=== PATIENT | female | born 1975 | race Caucasian/White ===

== ENCOUNTER 2019-03-01 18:03 | Outpatient (REF) | payer BC, SELFPAY ==
[2019-03-01 20:21] LABS: HCT 41.3 % (36.0-46.0); HGB 13.3 g/dL (12.0-15.5); Mean Corp. HGB Concentration 32.2 g/dL (32.0-36.0); Mean Corpuscular Hemoglobin 32.5 pg (27.0-33.0); Mean Platelet Volume 11.7 fL (8.0-11.0); Platelet Count 215 x1000/uL (130-400); RBC 4.09 m/cumm (4.00-5.20); RBC Distribution Width 12.9 % (11.7-14.6); White Blood Cell Count 6.25 k/cumm (4.4-10.8)
[2019-03-01 20:34] LABS: Iron 72 ug/dL (50-175); Total Iron Binding Capacity 251 ug/dL (250-450); Transferrin Sat 29 % (15-50)
[2019-03-01 20:35] LABS: ALT 21 U/L (14-59); AST 14 U/L (15-37); Albumin 4.4 g/dL (3.4-5.0); Alkaline Phosphatase 109 U/L (46-116); Anion Gap 10.9 mmol/L (3-11); BUN 20 mg/dL (7-18); Bilirubin, Total 0.4 mg/dL (0.2-1.0); CO2 26.1 mmol/L (21.0-32.0); CREATININE 0.75 mg/dL (0.55-1.02); Calcium 8.7 mg/dL (8.5-10.1); Chloride 106 mmol/L (98-107); Creatine Kinase 129 U/L (26-192); Glucose 86 mg/dL (70-100); Sodium 143 mmol/L (136-145); Total Protein 7.1 g/dL (6.4-8.2)
[2019-03-01 21:01] LABS: ESR 10 mm/hr (0-20)
== END 2019-03-01 18:23 ==
LOC: NCHCN 18:03
PROVIDERS: PCP Internal Medicine; Visit Provider Internal Medicine
DX: K76.0 Fatty (change of) liver, not elsewhere classified (principal); D50.9 Iron deficiency anemia, unspecified; M79.7 Fibromyalgia
CPT/HCPCS: 80053; 82550; 85027; 85652; 83540; 83550

== ENCOUNTER 2019-07-07 12:39 | Outpatient (REF) | payer BC, SELFPAY ==
[2019-07-07 18:26] LABS: Microalb ug/mg Crea 29.4 ug/mg Cr
== END 2019-07-07 12:59 ==
LOC: NCHCN 12:39
PROVIDERS: PCP Internal Medicine; Visit Provider Internal Medicine
DX: E11.9 Type 2 diabetes mellitus without complications (principal)
CPT/HCPCS: 82043; 82570

== ENCOUNTER 2019-08-15 13:46 | Outpatient (CLI) | payer BC, SELFPAY ==
[2019-08-21 11:45] LABS: COVID-19 RT-PCR Result Not Detected (NotDetected)
== END 2019-08-15 14:06 ==
PROVIDERS: PCP Internal Medicine; Visit Provider Internal Medicine
DX: Z20.828 Contact with and (suspected) exposure to other viral communicable diseases (principal); Z11.59 Encounter for screening for other viral diseases; R50.9 Fever, unspecified
CPT/HCPCS: 87449; U0003

== ENCOUNTER 2019-12-28 16:27 | Outpatient (REF) | payer BC, SELFPAY ==
[2019-12-28 19:54] LABS: HCT 43.6 % (36.0-46.0); HGB 13.9 g/dL (11.2-15.7); MCH 32.6 pg (27.0-33.0); MCHC 31.9 % (32.0-36.0); MCV 102.1 fL (80-95); MPV 11.7 fL (8.0-11.0); Platelet Count 226 10^3/uL (130-400); RBC 4.27 10^6/uL (3.93-5.22); RDW 12.7 % (11.7-14.6); RDW-SD 47.7 fL
[2019-12-28 19:57] LABS: Anion Gap 8.2 mmol/L (3-11); BUN 18 mg/dL (7-18); CO2 26.8 mmol/L (21.0-32.0); CREATININE 0.69 mg/dL (0.55-1.02); Calcium 8.9 mg/dL (8.5-10.1); Chloride 107 mmol/L (98-107); Glucose 92 mg/dL (74-106); Potassium 4.5 mmol/L (3.5-5.1); Sodium 142 mmol/L (136-145)
[2019-12-28 20:19] LABS: Iron 109 ug/dL (50-170); Total Iron Binding Capacity 293 ug/dL (250-450); Transferrin Sat 37 % (15-50)
== END 2019-12-28 16:47 ==
LOC: NCHCN 16:27
PROVIDERS: PCP Internal Medicine; Visit Provider Internal Medicine
DX: E11.9 Type 2 diabetes mellitus without complications (principal); D50.9 Iron deficiency anemia, unspecified
CPT/HCPCS: 80048; 85027; 83540; 83550

== ENCOUNTER 2020-09-04 09:47 | Outpatient (REF) | payer BC, SELFPAY ==
[2020-09-05 03:27] LABS: COVID-19 RT-PCR UVMMC Result Positive (Negative)
== END 2020-09-04 09:48 | disposition home or self-care (01) ==
LOC: NCHCN 09:47
PROVIDERS: PCP Internal Medicine; Visit Provider Internal Medicine
DX: Z20.822 Contact with and (suspected) exposure to COVID-19 (principal)
CPT/HCPCS: U0003

== ENCOUNTER 2020-09-06 05:45 | Outpatient (CLI) | payer BC, SELFPAY ==
[2020-09-06 13:37] VITALS: BP 117/82; PULSE 90; RESP 18; TEMP 37.8; O2SAT 96
[2020-09-06] MEDS: Normal Saline Flush 10 ML SYR IVP (13:42)
[2020-09-06] MEDS: Normal Saline 500 ML 30 ML IV (13:43)
[2020-09-06 13:46] VITALS: BP 111/76; PULSE 81; RESP 18; TEMP 36.9; O2SAT 97
[2020-09-06 14:25] VITALS: BP 110/76; PULSE 76; RESP 20; TEMP 37.4; O2SAT 93
[2020-09-06 14:55] VITALS: BP 109/68; PULSE 78; RESP 20; TEMP 37.5; O2SAT 95
[2020-09-06 15:26] VITALS: BP 110/76; PULSE 73; RESP 16; TEMP 36.1; O2SAT 96
== END 2020-09-06 05:46 | disposition home or self-care (01) ==
LOC: INF 05:48
PROVIDERS: PCP Internal Medicine; Visit Provider Family Medicine
DX: U07.1 COVID-19 (principal)
CPT/HCPCS: 96365

== ENCOUNTER 2021-10-10 17:38 | Outpatient (REF) | payer BC, SELFPAY ==
[2021-10-10 18:31] LABS: HCT 41.5 % (36.0-46.0); HGB 13.4 g/dL (11.2-15.7); MCH 32.3 pg (27.0-33.0); MCHC 32.3 % (32.0-36.0); MCV 100 fL (80-95); MPV 11.4 fL (8.0-11.0); Platelet Count 207 10^3/uL (130-400); RBC 4.15 10^6/uL (3.93-5.22); RDW 12.6 % (11.7-14.6); RDW-SD 46.3 fL; WBC 8.15 10^3/uL (4.4-10.8)
[2021-10-10 19:25] LABS: ALT 31 U/L (14-59); AST 17 U/L (15-37); Albumin 4.2 g/dL (3.4-5.0); Alkaline Phosphatase 106 U/L (46-116); Anion Gap 10.5 mmol/L (3-11); BUN 22 mg/dL (7-18); Bilirubin, Total 0.2 mg/dL (0.2-1.0); CO2 25.5 mmol/L (21.0-32.0); CREATININE 0.9 mg/dL (0.55-1.02); Calcium 8.4 mg/dL (8.5-10.1); Chloride 107 mmol/L (98-107); Glucose 85 mg/dL (74-106); Potassium 4.3 mmol/L (3.5-5.1); Sodium 143 mmol/L (136-145); TSH 0.85 uIU/mL (0.36-3.74); Total Protein 7.2 g/dL (6.4-8.2)
== END 2021-10-10 17:39 | disposition home or self-care (01) ==
LOC: NCHCN 17:38
PROVIDERS: PCP Internal Medicine; Visit Provider Internal Medicine
DX: R73.03 Prediabetes (principal); K76.0 Fatty (change of) liver, not elsewhere classified
CPT/HCPCS: 80053; 85027; 84443

== ENCOUNTER 2022-10-23 18:08 | Outpatient (REF) | payer BC, SELFPAY ==
[2022-10-23 19:36] LABS: ALT 24 U/L (14-59); AST 21 U/L (15-37); Alkaline Phosphatase 115 U/L (46-116); Anion Gap 9.1 mmol/L (3-11); BUN 17 mg/dL (7-18); Bilirubin, Total 0.2 mg/dL (0.2-1.0); CO2 24.9 mmol/L (21.0-32.0); CREATININE 0.8 mg/dL (0.55-1.02); Calcium 8.9 mg/dL (8.5-10.1); Calculated LDL 67 mg/dL (<100); Chloride 106 mmol/L (98-107); Cholesterol 166 mg/dL (<200); Glucose 87 mg/dL (74-106); HDL Cholesterol 51 mg/dL (40-60); Potassium 3.8 mmol/L (3.5-5.1); Sodium 140 mmol/L (136-145); TSH 1.26 uIU/mL (0.36-3.74); Total Protein 7.5 g/dL (6.4-8.2); Triglyceride 242 mg/dL (<150)
[2022-10-23 19:47] LABS: Creatine Kinase 134 U/L (26-192)
[2022-10-23 19:55] LABS: HCT 40.8 % (36.0-46.0); HGB 13.5 g/dL (11.2-15.7); MCHC 33.1 % (32.0-36.0); MCV 97 fL (80-95); MPV 12.3 fL (8.0-11.0); Platelet Count 208 10^3/uL (130-400); RBC 4.22 10^6/uL (3.93-5.22); RDW-SD 46.6 fL; WBC 7.47 10^3/uL (4.4-10.8)
== END 2022-10-23 18:09 | disposition home or self-care (01) ==
LOC: NCHCN 18:08
PROVIDERS: PCP Internal Medicine; Visit Provider Internal Medicine
DX: Z00.00 Encounter for general adult medical examination without abnormal findings (principal); K91.2 Postsurgical malabsorption, not elsewhere classified; E66.8 Other obesity; R42 Dizziness and giddiness; D50.9 Iron deficiency anemia, unspecified; E11.9 Type 2 diabetes mellitus without complications
CPT/HCPCS: 80053; 80061; 82550; 85027; 84443

== ENCOUNTER 2023-05-13 22:29 | Outpatient (REF) | payer BC, SELFPAY ==
[2023-05-13 19:25] LABS: Abs Immature Grans 0.02 10^3/uL (0.0-0.06); Absolute Basophil Count 0.05 10^3/uL (0.0-0.2); Absolute Eosinophil Count 0.23 10^3/uL (0.0-0.7); Absolute Lymphocyte Count 1.65 10^3/uL (1.2-3.4); Absolute Monocyte Count 0.58 10^3/uL (0.1-0.8); Absolute Neutrophil Count 3.95 10^3/uL (1.2-6.7); Basophils % 0.8; Eosinophils % 3.5; HCT 40.1 % (36.0-46.0); HGB 13.5 g/dL (11.2-15.7); Immature Grans % 0.3; Lymphocytes % 25.5; MCH 32.5 pg (27.0-33.0); MCHC 33.7 % (32.0-36.0); MCV 96 fL (80-95); MPV 11.5 fL (8.0-11.0); Neutrophils % 60.9; Platelet Count 228 10^3/uL (130-400); RBC 4.16 10^6/uL (3.93-5.22); RDW 12.4 % (11.7-14.6); RDW-SD 43.8 fL; WBC 6.48 10^3/uL (4.4-10.8)
[2023-05-13 19:45] LABS: ALT 24 U/L (14-59); AST 19 U/L (15-37); Albumin 3.9 g/dL (3.4-5.0); Alkaline Phosphatase 110 U/L (46-116); Anion Gap 7.7 mmol/L (3-11); BUN 20 mg/dL (7-18); Bilirubin, Total 0.2 mg/dL (0.2-1.0); CO2 25.3 mmol/L (21.0-32.0); CREATININE 0.8 mg/dL (0.55-1.02); Calcium 9.3 mg/dL (8.5-10.1); Chloride 105 mmol/L (98-107); Glucose 96 mg/dL (74-106); Magnesium 2.3 mg/dL (1.8-2.4); Potassium 3.9 mmol/L (3.5-5.1); Sodium 138 mmol/L (136-145); Total Protein 7.6 g/dL (6.4-8.2)
--- OUTSIDE RECORDS SUMMARY | 2023-05-13 22:34 | XMS_ITS | Continuity of Care Document ---
Author Name Unknown Organization [facility] Address [address] [place] [address] Care Team Providers Care Jet Aircraft Servicer Name Role Phone Primeau Pritesh SETH Primary Care Physician Encounter [facility] Date(s): 04/27/22 - 04/27/[address] [phone] Discharge Disposition: Home or Self Care Attending Physician: César Patel MD Admitting Physician: César Patel MD Referring Physician: César Patel MD Allergies, Adverse Reactions, Alerts Substance Reaction Severity Status LATEX Unknown Active haloperidol Urticaria Unknown Active benztropine Urticaria Unknown Active iodine topical Urticaria Unknown Active Assessment and Plan Future Appointments Immunizations Given and Recorded Vaccine Date Status Refusal Reason influenza virus vaccine, inactivated 03/03/22 Give n SARS-CoV-2 (COVID-19) mRNA-1273 vaccine 1 10/10/21 Recorded [id number]-1273 (booster only) vacc 03/30/21 Recorded influenza virus vaccine, live 02/25/21 Recorded influenza virus vaccine, live 06/02/19 Recorded SARS-CoV-2 (COVID-19) Ad26 vaccine 10/16/20 Record ed 1Result Comment: 2nd booster Medications ARIPiprazole 15 mg oral tablet 15 mg = 1 tab, Oral, Daily Start Date: 12/15/21 Status: Ordered ciclopirox 0.77% topical cream See Instructions, APPLY TO THE AFFECTED AND SURROUNDING AREAS OF SKIN BY TOPICAL ROUTE 2 TIMES PER DAY IN THE MORNING AND EVENING, 0 Refill(s) Start Date: 10/15/21 Status: Ordered Citracal + D 0 Refill(s) Start Date: 04/17/22 Status: Ordered Colace 100 mg oral capsule 200 mg = 2 cap, Oral, Daily, 0 Refill(s) Start Date: 10/15/21 Status: Ordered erythromycin 2% topical gel 1 harleen, Topical, Daily Start Date: 12/15/21 Status: Ordered Flovent HFA 110 mcg/inh inhalation aerosol 2 puffs, Inhale, BID, 0 Refill(s) Start Date: 10/15/21 Status: Ordered FLUoxetine (Eqv-Prozac) 20 mg oral tablet 1 tab, Oral, Daily, 60 EA, TAKE 1 TABLETS BY MOUTH DAILY FOR 2 WEEKS THEN TAKE 2 TABLETS DAILY THERAFTER, 0 Refill(s) Start Date: 02/25/22 Status: Ordered gabapentin 600 mg oral tablet See Instructions, take 3 tablets in the morning, 2 tablets at noon, and 2 tablets at night, 0 Refill(s) Start Date: 10/15/21 Status: Ordered ibuprofen 600 mg oral tablet 600 mg = 1 tab, Oral, every 8 hr, as needed Start Date: 12/15/21 Status: Ordered GERARDO pap pressure change GERARDO pap pressure change, increase auto CPAP 11-22 cmH2O NPI # [id number], Supply, See instructions, # 1 EA, 0 Refill(s) Start Date: 10/16/21 Status: Ordered levalbuterol 45 mcg/inh inhalation aerosol 2 puffs, Inhale, every 6 hr, PRN other (see comment), as needed Start Date: 10/15/21 Status: Ordered magnesium oxide 400 mg (241.3 mg elemental magnesium) oral tablet 400 mg = 1 tab, Oral, Daily, 0 Refill(s) Start Date: 10/15/21 Status: Ordered melatonin 3 mg oral tablet 3 mg = 1 tab, Oral, every day at bedtime, PRN as needed for insomnia, # 60 tab, 0 Refill(s) Start Date: 04/17/22 Status: Ordered Metamucil 0 Refill(s) Start Date: 04/17/22 Status: Ordered Mirena 52 mg intrauteral device Intrauteral, 0 Refill(s) Start Date: 10/15/21 Status: Ordered mirtazapine 15 mg oral tablet Start Date: 10/15/21 Status: Ordered naltrexone 50 mg oral tablet 50 mg = 1 tab, Oral, Daily Start Date: 12/15/21 Status: Ordered pramipexole 1 mg oral tablet 1 mg = 1 tab, Oral, every night at bedtime Start Date: 10/15/21 Status: Ordered prazosin 2 mg oral capsule 2 mg = 1 cap, Oral, every night at bedtime Start Date: 12/15/21 Status: Ordered ProAir HFA 90 mcg/inh inhalation aerosol 2 puffs, Inhale, every 4 hr, PRN other (see comment), as needed, 0 Refill(s) Start Date: 10/15/21 Status: Ordered Senna 8.6 mg oral tablet 34.4 mg 4 tab, Oral, Daily, PRN as needed for constipation Start Date: 12/15/21 Status: Ordered tamsulosin 0.4 mg oral capsule 0.4 mg = 1 cap, Oral, BID, 0 Refill(s) Start Date: 10/15/21 Status: Ordered Problem List Condition Confirmation Course Effective Dates Status H ealth Status Informant Acquired pes planus of right foot Confirmed Active Anal fissure Confirmed Active Arthralgia of the ankle and/or foot Confirmed Active Asthma Confirmed Active Bipolar disorder Confirmed Active Depressive disorder Confirmed Active Difficulty passing urine Confirmed Active Intermenstrual bleeding - irregular Confirmed Active Irregular periods Confirmed Active IUCD status Confirmed Active Obstructive sleep apnea syndrome Confirmed Active Pain in right foot Confirmed Active Pain of breast Confirmed Active Retention of urine Confirmed Active Snoring Confirmed Active Urinary incontinence Confirmed Active Procedures Procedure Date Related Diagnosis Body Site Status PAP test date 1 08/14/15 Completed Tubal ligation 05/30/03 Completed Cholecystectomy 2 05/09/97 [facility] ed Back surgery Completed Biopsy of liver 3 [facility] ed Gastric bypass 4 Complete d pap nl, hpv neg, next pap due 07/2020 2Laparoscopic 3several 00130, 07/2002 Results Laboratory List Name Date ABO/Rh 04/27/22 Antibody Screen Gel 04/27/22 Automated Diff 04/27/22 CBC w/ Diff 04/27/22 Most recent to oldest [Reference Range]: 1 WBC [5.0-10.0 x10^3/mcL] 5.0 x10^3/mcL (04/27/22 8:51 AM) RBC [4.1-5.3 x10^6/mcL] 4.0 x10^6/mcL *LOW* (04/27/22 8:51 AM) Neutro Auto [40.0-75.0 %] 61.2 % (04/27/22 8:51 AM) Lymph Auto [20.0-50.0 %] 28.6 % (04/27/22 8:51 AM) Piatt Auto [2.0-15.0 %] 7.6 % (04/27/22 8:51 AM) Basophil Auto [0.0-1.0 %] 0.6 % (04/27/22 8:51 AM) ABO/Rh Type O POS *Unknown* (04/27/22 8:51 AM) MCV [80.0-96.0] 99.5 *HI* (04/27/22 8:51 AM) MCHC [31.0-35.0 g/dL] 32.5 g/dL (04/27/22 8:51 AM) Hct [37.0-47.0 %] 40.3 % (04/27/22 8:51 AM) MCH [26.0-32.0 pg] 32.3 pg *HI* (04/27/22 8:51 AM) Neutro Absolute 3.1 x10^3/mcL *NA* (04/27/22 8:51 AM) Hgb [12.0-16.0 g/dL] 13.1 g/dL (04/27/22 8:51 AM) Platelets [130-450 x10^3/mcL] 168 x10^3/ mcL (04/27/22 8:51 AM) RDW-CV [11.7-17.0 %] 12.9 % (04/27/22 8:51 AM) Imm Gran Auto [0.0-0.9 %] 0.2 % (04/27/22 8:51 AM) Antibody Screen Gel Negative ABSC (04/27/22 8:51 AM) Eos, Auto [1.0-6.0 %] 1.8 % (04/27/22 8:51 AM) Social History Social History Type Response Tobacco Never tobacco user T obacco Use:. Sex Female Patient Care team information Personnel Name: Remedios BUNCH, Pritesh Washington MD Address: Address: [address] [address]
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
--- OUTSIDE RECORDS SUMMARY | 2023-05-13 22:34 | XMS_ITS | Continuity of Care Document ---
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 Name Role Phone Primeau IPHCPritesh Primary Care Physician [facility]counter [facility] [id number] Date(s): 04/14/22 - 04/14/[address] [address] Discharge Disposition: Home or Self Care Attending Physician: César Patel MD Admitting Physician: César Patel MD Allergies, Adverse Reactions, Alerts Substance Reaction Severity Status LATEX Unknown Active haloperidol Urticaria Unknown Active benztropine Urticaria Unknown Active iodine topical Urticaria Unknown Active Assessment and Plan Future Appointments Diagnostic Tests Pending * PAP Test [facility] 04/14/22 Immunizations Given and Recorded Vaccine Date Status Refusal Reason influenza virus vaccine, inactivated 03/03/22 Give n SARS-CoV-2 (COVID-19) mRNA-1273 vaccine 1 10/10/21 Recorded [id number] (booster only) vacc 03/30/21 Recorded influenza virus [...] 0 Refill(s) Start Date: 10/15/21 Status: Ordered Colace 100 mg oral capsule [...] pressure change, increase auto CPAP 11-22 cmH2O [facility] # [id number], Supply, See instructions, # 1 EA, 0 Refill(s) Start Date: 10/16/21 Status: Ordered levalbuterol 45 mcg/inh inhalation aerosol 2 puffs, Inhale, every 6 hr, PRN other (see comment), as needed Start Date: 10/15/21 Status: Ordered magnesium oxide 400 mg (241.3 mg elemental magnesium) oral tablet 400 mg = 1 tab, Oral, Daily, 0 Refill(s) Start Date: 10/15/21 Status: Ordered Mirena 52 mg intrauteral device [...] Tubal ligation 05/30/03 Completed Cholecystectomy 2 05/09/97 Complet ed Back surgery Completed Biopsy of liver 3 Complet ed Gastric bypass 4 Complete d pap nl, hpv neg, next pap due 07/2020 2Laparoscopic 3several 311[address], 07/2002 Social History Social History Type Response Tobacco Never tobacco user T obacco Use:. Sex Female Patient Care team information Personnel Name: Remedios [facility], Pritesh Washington MD Address: Address: [id number] [place] [address]
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
--- OUTSIDE RECORDS SUMMARY | 2023-05-13 22:34 | XMS_ITS | Continuity of Care Document ---
Author Name Unknown Organization [facility] Address [address] [place] [address] Care Team Providers Care Chemical Detection Expert Name Role Phone Pritesh Aoms Primary Care Physician Encounter [facility] Date(s): 03/04/22 - 03/04/[address] [address] Discharge Disposition: Home or Self Care Attending Physician: Pritesh Amos MD Admitting Physician: rPitesh Amos MD Referring Physician: Pritesh Amos MD Allergies, Adverse Reactions, Alerts Substance Reaction Severity Status LATEX Unknown Active haloperidol Urticaria Unknown Active benztropine Urticaria Unknown Active iodine topical Urticaria Unknown Active Assessment and Plan Future Appointments Immunizations Given and Recorded Vaccine Date Status Refusal Reason influenza virus vaccine, inactivated 03/03/22 Give n SARS-CoV-2 (COVID-19) mRNA-1273 vaccine 1 10/10/21 Recorded [id number] (booster only) vacc 03/30/21 Recorded influenza virus [...] 0 Refill(s) Start Date: 10/15/21 Status: Ordered hydrOXYzine pamoate 50 mg oral capsule 50 mg = 1 cap, Oral, every night at bedtime Start Date: 12/15/21 Status: Ordered ibuprofen 600 mg oral tablet 600 mg = 1 tab, Oral, every 8 hr, as needed Start Date: 12/15/21 Status: Ordered GERARDO pap pressure change GERARDO pap pressure change, increase auto CPAP 11-22 cmH2O NPI # [id number], Supply, See instructions, # 1 EA, 0 [...] 0 Refill(s) Start Date: 10/15/21 Status: Ordered traZODone 100 mg oral tablet 100 mg = 1 tab, Oral, every night at bedtime Start Date: 12/15/21 Status: Ordered Problem List [...] Procedure Date Related Diagnosis Body Site Status Tubal ligation 05/30/03 Completed Cholecystectomy 1 05/09/97 [facility] ed Back surgery Completed Biopsy of liver 2 [facility] ed Gastric bypass 3 Complete d 1Laparoscopic 2several 24495, 07/2002 Social History Social History Type Response Tobacco Never tobacco user T obacco Use:. Sex Female Patient Care team information Personnel Name: [facility] Address: Address: [address] [address]- [place]
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
--- OUTSIDE RECORDS SUMMARY | 2023-05-13 22:34 | XMS_ITS | Continuity of Care Document ---
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 Name Role Phone Pritesh Amos Primary Care Physician Encounter [facility] Date(s): 04/29/22 - 04/30/[address] [address] Encounter Diagnosis S/P hysterectomy(Discharge Diagnosis) - 04/29/22 Discharge Disposition: Home or Self Care Attending Physician: César Patel MD Admitting Physician: César Patel MD Referring Physician: Pritesh Noyola MD Allergies, Adverse Reactions, Alerts Substance Reaction Severity Status LATEX Unknown Active haloperidol Urticaria Unknown Active benztropine Urticaria Unknown Active iodine topical Urticaria Unknown Active Maple Anaphylactic reaction Severe Active Mushroom Anaphylactic reaction Severe Active Assessment and Plan Future Appointments Diagnostic Tests Pending * Surgical Pathology [facility] 04/29/22 Functional Status 04/29/22 Living Environment No Living Environmen t Information Available Lives With Child(renny), Spouse 04/29/22 Anti-Embolism Device Activity: In place Anti-Embolism Site Condition: No complic ations 04/29/22 Family Member Travel History No recent t ravel Recent Travel History No recent travel Other exposure to Infectious Disease Non e Immunizations Given and Recorded Vaccine Date Status Refusal Reason influenza virus vaccine, inactivated 03/03/22 Give n SARS-CoV-2 (COVID-19) mRNA-1273 vaccine 1 10/10/21 Recorded [id number] (booster only) vacc 03/30/21 Recorded influenza virus [...] 0 Refill(s) Start Date: 10/15/21 Status: Ordered Dilaudid 2 mg oral tablet 2 mg = 1 tab, Oral, every 4 hr, # 12 tab, 0 Refill(s), Pharmacy: [facility] #[id number] Start Date: 04/29/22 Status: Ordered erythromycin 2% topical gel 1 [...] 0 Refill(s) Start Date: 10/15/21 Status: Ordered HYDROmorphone 2 mg oral tablet 2 mg = 1 tab, Oral, every 4 hr (seven), PRN pain, 0 Refill(s) Start Date: 04/29/22 Status: Ordered GERARDO pap pressure change GERARDO pap pressure change, increase auto CPAP 11-22 cmH2O NPI # [id number], Supply, See instructions, # 1 EA, 0 [...] ovary(s) 1 04/28/22 Completed PAP test date 2 08/14/15 Completed Tubal ligation 05/30/03 Completed Cholecystectomy 3 05/09/97 [facility] ed Back surgery Completed Biopsy of liver 4 [facility] ed Gastric bypass 5 Complete d LAVH, BS, Lap. [facility] pap nl, hpv neg, next pap due 07/2020 3Laparoscopic 4several [address], 07/2002 Vital Signs Most recent to oldest [Reference Range]: 1 2 3 Temperature Oral [35.8-37.3 Deg C] 36.7 Deg C (04/29/22 8:04 AM) Temperature Temporal Artery [36-38 Deg C] 37.6 Deg C (04/30/22 7:40 AM) 37.4 Deg C (04/30/22 6:16 AM) 36.8 Deg C (04/30/22 12:04 AM) Temperature Temporal Artery (DegF) [97.3-100 Deg F] 99.32 Deg F (04/30/22 6:16 AM) 97.16 Deg F *LOW* (04/29/22 3:05 PM) 96.8 Deg F *LOW* (04/29/22 1:05 PM) Peripheral Pulse Rate [60-100 bpm] 83 bpm (04/30/22 7:40 AM) 68 bpm (04/30/22 6:16 AM) 59 bpm *LOW* (04/30/22 12:04 AM) Heart Rate Monitored [60-100 bpm] 64 bpm (04/29/22 3:20 PM) 65 bpm (04/29/22 3:05 PM) 72 bpm (04/29/22 2:50 PM) Respiratory Rate [12-24 br/min] 18 br/min (04/30/22 7:40 AM) 16 br/min (04/30/22 6:16 AM) 16 br/min (04/30/22 12:04 AM) Blood Pressure [90-140/60-90 mmHg] 102/51mmHg (04/30/22 7:40 AM) 119/55mmHg (04/30/22 6:16 AM) 106/53mmHg (04/30/22 12:04 AM) Mean Arterial Pressure, Cuff [65-140 mmHg] 63 mmHg *LOW* (04/29/22 3:20 PM) 69 mmHg (04/29/22 3:05 PM) 71 mmHg (04/29/22 2:50 PM) Mean Arterial Pressure Cuff 66 mmHg (04/30/22 7:40 AM) 69 mmHg (04/30/22 12:04 AM) 75 mmHg (04/29/22 8:07 PM) Blood Pressure Location Left arm (04/30/22 6:16 AM) Left arm (04/30/22 12:04 AM) Left arm (04/29/22 8:07 PM) Blood Pressure Method Automatic (04/30/22 6:16 AM) Automatic (04/30/22 12:04 AM) Automatic (04/29/22 8:07 PM) Weight 114 kg (04/29/22 8:04 AM) Height 163 cm (04/29/22 8:04 AM) Body Mass Index 42.91 kg/m2 (04/29/22 8:04 AM) Social History Social History Type Response Tobacco Never tobacco user T obacco Use:. Sex Female Hospital Discharge Instructions Patient Education 04/30/2022 06:56:23 Total Laparoscopic Hysterectomy, Care After Total Laparoscopic Hysterectomy, Care After The following information offers guidance on how to care for yourself after your procedure. Your health care provider may also give you more specific instructions. If you have problems or questions, contact your health care provider. What can I expect after the procedure? After the procedure, it is common to have: ??? Pain, bruising, and numbness around your incisions. ??? Tiredness (fatigue). ??? Poor appetite. ??? Less interest in sex. ??? Vaginal discharge or bleeding. You will need to use a sanitary pad after this procedure. ??? Feelings of sadness or other emotions. If your ovaries were also removed, it is also common to have symptoms of menopause, such as hot flashes, night sweats, and lack of sleep (insomnia). Follow these instructions at home: Medicines ??? Take qjew-gin-zwjeibn and prescription medicines only as told by your health care provider. ??? Ask your health care provider if the medicine prescribed to you: ??? Requires you to avoid driving or using machinery. ??? Can cause constipation. You may need to take these actions to prevent or treat constipation: ??? Drink enough fluid to keep your urine pale yellow. ??? Take snlp-jpk-dverntv or prescription medicines. ??? Eat foods that are high in fiber, such as beans, whole grains, and fresh fruits and vegetables. ??? Limit foods that are high in fat and processed sugars, such as fried or sweet foods. Incision care ??? Follow instructions from your health care provider about how to take care of your incisions. Make sure you: ??? Wash your hands with soap and water for at least 20 seconds before and after you change your bandage (dressing). If soap and water are not available, use hand car repair supervisor. ??? Change your dressing as told by your health care provider. ??? Leave stitches (sutures), skin glue, or adhesive strips in place. These skin closures may need to stay in place for 2 weeks or longer. If adhesive strip edges start to loosen and curl up, you maytrim the loose edges. Do not remove adhesive strips completely unless your health care provider tells you to do that. ??? Check your incision areas every day for signs of infection. Check for: ??? More redness, swelling, or pain. ??? Fluid or blood. ??? Warmth. ??? Pus or a bad smell. Activity ??? Rest as told by your health care provider. ??? Avoid sitting for a long time without moving. Get up to take short walks every 1???2 hours. This is important to improve blood flow and breathing. Ask for help if you feel weak or unsteady. ??? Return to your normal activities as told by your health care provider. Ask your health care provider what activities are safe for you. ??? Do not lift anything that is heavier than 10 lb (4.5 kg), or the limit that you are told, for one month after surgery or until your health care provider says that it is safe. ??? If you were given a sedative during the procedure, it can affect you for several hours. Do not drive or operate machinery until your health care provider says that it is safe. Lifestyle ??? Do not use any products that contain nicotine or tobacco. These products include cigarettes, chewing tobacco, and vaping devices, such as e-cigarettes. These can delay healing after surgery. If you need help quitting, ask your health care provider. ??? Do not drink alcohol until your health care provider approves. General instructions ??? Do not douche, use tampons, or have sex for at least 6 weeks, or as told by your health care provider. ??? If you struggle with physical or emotional changes after your procedure, speak with your healthcare provider or a therapist. ??? Do not take baths, swim, or use a hot tub until your health care provider approves. You may only be allowed to take showers for 2???3 weeks. ??? Keep your dressing dry until your health care provider says it can be removed. ??? Try to have someone at home with you for the first 1???2 weeks to help with your daily chores. ??? Wear compression stockings as told by your health care provider. These stockings help to prevent blood clots and reduce swelling in your legs. ??? Keep all follow-up visits. This is important. Contact a health care provider if: ??? You have any of these signs of infection: ??? Chills or a fever. ??? More redness, swelling, or pain around an incision. ??? Fluid or blood coming from an incision. ??? Warmth coming from an incision. ??? Pus or a bad smell coming from an incision. ??? An incision opens. ??? You feel dizzy or light-headed. ??? You have pain or bleeding when you urinate, or you are unable to urinate. ??? You have abnormal vaginal discharge. ??? You have pain that does not get better with medicine. Get help right away if: ??? You have a fever and your symptoms suddenly get worse. ??? You have severe abdominal pain. ??? You have chest pain or shortness of breath. ??? You faint. ??? You have pain, swelling, or redness in your leg. ??? You have heavy vaginal bleeding with blood clots, soaking through a sanitary pad in less than 1hour. These symptoms may represent a serious problem that is an emergency. Do not wait to see if the symptoms will go away. Get medical help right away. Call your local emergency services (911 in the [place] Do not drive yourself to the hospital. Summary ??? After the procedure, it is common to have pain and bruising around your incisions. ??? Do not take baths, swim, or use a hot tub until your health care provider approves. ??? Do not lift anything that is heavier than 10 lb (4.5 kg), or the limit that you are told, for one month after surgery or until your health care provider says that it is safe. ??? Tell your health care provider if you have any signs or symptoms of infection after the procedure. ??? Get help right away if you have severe abdominal pain, chest pain, shortness of breath, or heavy bleeding from your vagina. This information is not intended to replace advice given to you by your health care provider. Make sure you discuss any questions you have with your health care provider. Document Revised: 01/17/2021 Document Reviewed: 01/17/2021 [employer] Patient Education ?? 2021 [employer]. 04/30/2022 06:56:21 Total Laparoscopic Hysterectomy Total Laparoscopic Hysterectomy A total laparoscopic hysterectomy is a minimally invasive surgery to remove the uterus and cervix. The fallopian tubes and ovaries can also be removed during this surgery, if necessary. This procedure may be done to treat problems such as: ??? Growths in the uterus (uterine fibroids) that are not cancer but cause symptoms. ??? A condition that causes the lining of the uterus to grow in other areas (endometriosis). ??? Problems with pelvic support. ??? Cancer of the cervix, ovaries, uterus, or tissue that lines the uterus (endometrium). ??? Excessive bleeding in the uterus. After this procedure, you will no longer be able to have a baby, and you will no longer have a menstrual period. Tell a health care provider about: ??? Any allergies you have. ??? All medicines you are taking, including vitamins, herbs, eye drops, creams, and thbp-hff-klhgaof medicines. ??? Any problems you or family members have had with anesthetic medicines. ??? Any blood disorders you have. ??? Any surgeries you have had. ??? Any medical conditions you have. ??? Whether you are or may be . What are the risks? Generally, this is a safe procedure. However, problems may occur, including: ??? Infection. ??? Bleeding. ??? Blood clots in the legs or lungs. ??? Allergic reactions to medicines. ??? Damage to nearby structures or organs. ??? Having to change from this surgery to one in which a large incision is made in the abdomen (abdominal hysterectomy). What happens before the procedure? Staying hydrated Follow instructions from your health care provider about hydration, which may include: ??? Up to 2 hours before the procedure ??? you may continue to drink clear liquids, such as water, clear fruit juice, black coffee, and plain tea. Eating and drinking restrictions Follow instructions from your health care provider about eating and drinking, which may include: ??? 8 hours before the procedure ??? stop eating heavy meals or foods, such as meat, fried foods, or fatty foods. ??? 6 hours before the procedure ??? stop eating light meals or foods, such as toast or cereal. ??? 6 hours before the procedure ??? stop drinking milk or drinks that contain milk. ??? 2 hours before the procedure ??? stop drinking clear liquids. Medicines ??? Ask your health care provider about: ??? Changing or stopping your regular medicines. This is especially important if you are taking diabetes medicines or blood thinners. ??? Taking medicines such as aspirin and ibuprofen. These medicines can thin your blood. Do not take these medicines unless your health care provider tells you to take them. ??? Taking dfaz-bfk-eyvixjb medicines, vitamins, herbs, and supplements. ??? You may be asked to take medicine that helps you have a bowel movement (laxative) to prevent constipation. General instructions ??? If you were asked to do bowel preparation before the procedure, follow instructions from your health care provider. ??? This procedure can affect the way you feel about yourself. Talk with your health care provider about the physical and emotional changes hysterectomy may cause. ??? Do not use any products that contain nicotine or tobacco for at least 4 weeks before the procedure. These products include cigarettes, chewing tobacco, and vaping devices, such as e-cigarettes. If you need help quitting, ask your health care provider. ??? Plan to have a responsible adult take you home from the hospital or clinic. ??? Plan to have a responsible adult care for you for the time you are told after you leave the hospital or clinic. This is important. Surgery safety Ask your health care provider: ??? How your surgery site will be marked. ??? What steps will be taken to help prevent infection. These may include: ??? Removing hair at the surgery site. ??? Washing skin with a germ-killing soap. ??? Receiving antibiotic medicine. What happens during the procedure? An IV will be inserted into one of your veins. ??? You will be given one or more of the following: ??? A medicine to help you relax (sedative). ??? A medicine to make you fall asleep (general anesthetic). ??? A medicine to numb the area (local anesthetic). ??? A medicine that is injected into your spine to numb the area below and slightly above the injection site (spinal anesthetic). ??? A medicine that is injected into an area of your body to numb everything below the injection site (regional anesthetic). ??? A gas will be used to inflate your abdomen. This will allow your surgeon to look inside your abdomen and do the surgery. ??? Three or four small incisions will be made in your abdomen. ??? A small device with a light (laparoscope) will be inserted into one of your incisions. Surgicalinstruments will be inserted through the other incisions in order to perform the procedure. ??? Your uterus and cervix may be removed through your vagina or cut into small pieces and removed through the small incisions. Any other organs that need to be removed will also be removed this way. ??? The gas will be released from inside your abdomen. ??? Your incisions will be closed with stitches (sutures), skin glue, or adhesive strips. ??? A bandage (dressing) may be placed over your incisions. The procedure may vary among health care providers and hospitals. What happens after the procedure? Your blood pressure, heart rate, breathing rate, and blood oxygen level will be monitored untilyou leave the hospital or clinic. ??? You will be given medicine for pain as needed. ??? You will be encouraged to walk as soon as possible. You will also use a device to help you breathe or do breathing exercises to keep your lungs clear. ??? You may have to wear compression stockings. These stockings help to prevent blood clots and reduce swelling in your legs. ??? You will need to wear a sanitary pad for vaginal discharge or bleeding. Summary ??? Total laparoscopic hysterectomy is a procedure to remove your uterus, cervix, and sometimes thefallopian tubes and ovaries. ??? This procedure can affect the way you feel about yourself. Talk with your health care provider about the physical and emotional changes hysterectomy may cause. ??? After this procedure, you will no longer be able to have a baby, and you will no longer have a menstrual period. ??? You will be given pain medicine to control discomfort after this procedure. ??? Plan to have a responsible adult take you home from the hospital or clinic. This information is not intended to replace advice given to you by your health care provider. Make sure you discuss any questions you have with your health care provider. Document Revised: 01/17/2021 Document Reviewed: 01/17/2021 [employer] Patient Education ?? 2021 [employer]. Discharge instructions * Cindy Minaya: PERFORM Event Display: Discharge Instructions Authored Date: [id number] REYNA LAZAR :1975 Age:46 years Sex:Female Visit Date:04/29/2022 Primary Care Physician: Remedios Pritesh SETH MD Hospital Discharge Instructions We would like to thank you for allowing us to assist you with your healthcare needs. The following includes patient education materials and information regarding your injury/illness. After you leave the hospital, you may get your health information including your test results, physician notes and discharge information by accessing your Patient Portal. Your Next Steps Scheduled Future Appointments Wednesday 2:20 PM EST ?? With: Jan Cortez MD [facility] [address] [place] [phone] Status: Confirmed Wednesday 1:30 PM EST ?? With: César Patel MD Where: [address], [address] [place] [address] Status: Confirmed 2021 10:45 AM EST ?? [facility] Where: [facility] [address] [place] [address] Status: Confirmed Wednesday 1:20 PM EST ?? With: César Patel MD Where: [address], [address] [place] [address] Status: Confirmed Medications What How Much When Why Instructions Next Dose New acetaminophen (acetaminophen 325 mg oral tablet) 2 tab Oral (given by mouth) Every 4 hours as needed for pain New HYDROmorphone (Dilaudid 2 mg oral tablet) 1 tab Oral (given by mouth) Every 4 [id number] New HYDROmorphone (HYDROmorphone 2 mg oral tablet) 1 tab Oral (given by mouth) Every 4 hours (scheduled) as needed for pain New mometasone (mometasone 220 mcg/ inh inhalation aerosol powder) Changed FLUoxetine (FLUoxetine (Eqv-Prozac) 20 mg oral tablet) 1 tab Oral (given by mouth) Every day 60 EA, TAKE 1 TABLETS BY MOUTH DAILY FOR 2 WEEKS THEN TAKE 2 TABLETS DAILY THERAFTER ?? Changed FLUoxetine (FLUoxetine 20 mg oral tablet) 1 tab Oral (given by mouth) Every day Changed albuterol (albuterol 90 mcg/ inh aerosol inhaler) 180 Micrograms Inhale (breathe in) Every 4 hours as needed for other (see comment) Changed albuterol (ProAir HFA 90 mcg/ inh inhalation aerosol) 2 Puffs Inhale (breathe in) Every 4 hours as needed for other (see comment) as needed ?? Unchanged ARIPiprazole (ARIPiprazole 15 mg oral tablet) 1 tab Oral (given by mouth) Every day Unchanged calcium-vitamin D (Citracal + D) Unchanged ciclopirox topical (ciclopirox 0.77% topical cream) See instructions APPLY TO THE AFFECTED AND SURROUNDING AREAS OF SKIN BY TOPICAL ROUTE 2 TIMES PER DAY IN THE MORNINGAND EVENING ?? Unchanged DME RESP CPAP (EGRARDO pap pressure change) See instructions Obstructive sleep apnea syndrome increase auto CPAP 11-22 cmH2O ?? NPI # [id number] ?? Unchanged docusate (Colace 100 mg oral capsule) 2 Capsules Oral (given by mouth) Every day Unchanged erythromycin topical (erythromycin 2% topical gel) 1 Application Topical (on the skin) Every day Unchanged fluticasone (Flovent HFA 110 mcg/ inh inhalation aerosol) 2 Puffs Inhale (breathe in) 2 times a day Unchanged gabapentin (gabapentin 600 mg oral tablet) See instructions take 3 tablets in the morning, 2 tablets at noon, and 2 tablets at night ?? Unchanged levalbuterol (levalbuterol 45 mcg/ inh inhalation aerosol) 2 Puffs Inhale (breathe in) Every 6 hours as needed for other (see comment) as needed ?? Unchanged levonorgestrel (Mirena 52 mg intrauteral device) Intrauteral Unchanged magnesium oxide (magnesium oxide 400 mg (241.3 mg elemental magnesium) oral tablet) 1 tab Oral (given by mouth) Every day Unchanged pramipexole (pramipexole 1 mg oral tablet) 1 tab Oral (given by mouth) Every night at bedtime Unchanged prazosin (prazosin 2 mg oral capsule) 1 Capsules Oral (given by mouth) Every night at bedtime Unchanged psyllium (Metamucil) Unchanged senna (Senna 8.6 mg oral tablet) 4 tab Oral (given by mouth) Every day as needed for as needed for constipation Unchanged tamsulosin (tamsulosin 0.4 mg oral capsule) 1 Capsules Oral (given by mouth) 2 times a day Pharmacy Information [facility] #[id number]: [address] [id number] [phone] ?? What How Much When Comments Stop Taking ibuprofen (ibuprofen 600 mg oral tablet) 1 tab Oral (given by mouth) Every 8 hours as needed ?? Stop Taking melatonin (melatonin 3 mg oral tablet) 1 tab Oral (given by mouth) Every night at bedtime as needed for as needed for insomnia Stop Taking mirtazapine (mirtazapine 15 mg oral tablet) Stop Taking naltrexone (naltrexone 50 mg oral tablet) 1 tab Oral (given by mouth) Every day Your Summary Your Care Team Admitting Physician - César Patel MD Attending Physician - César Patel MD [facility], Pritesh [place] MD Referring Physician - Remedios [facility], Pritesh [place] MD Your Diagnosis S/P hysterectomy Problems Ongoing - Any problem that you are currently receiving treatment for. Acquired pes planus of right foot Anal fissure Arthralgia of the ankle and/or foot Asthma Bipolar disorder Depressive disorder Difficulty passing urine Intermenstrual bleeding - irregular Irregular periods IUCD status Morbid obesity Obstructive sleep apnea syndrome Pain in right foot Pain of breast Retention of urine S/P hysterectomy Snoring Urinary incontinence Historical - Any problem that you are no longer receiving treatment for. Procedures Performed ???Laparoscopy, surgical, with vaginal hysterectomy, for uterus 250 g or less; with removal of tube(s) and/or ovary(s) (04/29/2022) Tests Performed/Pending Surgical Pathology [facility]?-- Results Pending -- You will be contacted within 72 hours with your results. Discharge Vitals Temperature??(Temporal Artery) 99.7 ??F (37.6 ??C) Heart Rate??(Peripheral) 83 Respiratory Rate?? 18 Blood Pressure?? 102/51?? Allergies Maple??(Anaphylactic reaction) Mushroom??(Anaphylactic reaction) LATEX benztropine??(Urticaria) haloperidol??(Urticaria) iodine topical??(Urticaria) Education Materials Total Laparoscopic Hysterectomy, Care After The following information offers guidance on how to care for yourself after your procedure. Your health care provider may also give you more specific instructions. If you have problems or questions, contact your health care provider. What can I expect after the procedure? After the procedure, it is common to have: ? Pain, bruising, and numbness around your incisions. ? Tiredness (fatigue). ? Poor appetite. ? Less interest in sex. ? Vaginal discharge or bleeding. You will need to use a sanitary pad after this procedure. ? Feelings of sadness or other emotions. If your ovaries were also removed, it is also common to have symptoms of menopause, such as hot flashes, night sweats, and lack of sleep (insomnia). Follow these instructions at home: Medicines ? Take lhql-hcp-pyuminu and prescription medicines only as told by your health care provider. ? Ask your health care provider if the medicine prescribed to you: ? Requires you to avoid driving or using machinery. ? Can cause constipation. You may need to take these actions to prevent or treat constipation: ? Drink enough fluid to keep your urine pale yellow. ? Take puon-tuk-gqipzij or prescription medicines. ? Eat foods that are high in fiber, such as beans, whole grains, and fresh fruits and vegetables. ? Limit foods that are high in fat and processed sugars, such as fried or sweet foods. Incision care ? Follow instructions from your health care provider about how to take care of your incisions. Make sure you: ? Wash your hands with soap and water for at least 20 seconds before and after you change your bandage (dressing). If soap and water are not available, use hand car repair supervisor. ? Change your dressing as told by your health care provider. ? Leave stitches (sutures), skin glue, or adhesive strips in place. These skin closures may need to stay in place for 2 weeks or longer. If adhesive strip edges start to loosen and curl up, you may trim the loose edges. Do not remove adhesive strips completely unless your health care provider tells you to do that. ? Check your incision areas every day for signs of infection. Check for: ? More redness, swelling, or pain. ? Fluid or blood. ? Warmth. ? Pus or a bad smell. Activity ? Rest as told by your health care provider. ? Avoid sitting for a long time without moving. Get up to take short walks every 1???2 hours. This isimportant to improve blood flow and breathing. Ask for help if you feel weak or unsteady. ? Return to your normal activities as told by your health care provider. Ask your health care provider what activities are safe for you. ? Do not lift anything that is heavier than 10 lb (4.5 kg), or the limit that you are told, for one month after surgery or until your health care provider says that it is safe. ? If you were given a sedative during the procedure, it can affect you for several hours. Do not drive or operate machinery until your health care provider says that it is safe. Lifestyle ? Do not use any products that contain nicotine or tobacco. These products include cigarettes, chewing tobacco, and vaping devices, such as e-cigarettes. These can delay healing after surgery. If you need help quitting, ask your health care provider. ? Do not drink alcohol until your health care provider approves. General instructions ? Do not douche, use tampons, or have sex for at least 6 weeks, or as told by your health care provider. ? If you struggle with physical or emotional changes after your procedure, speak with your health care provider or a therapist. ? Do not take baths, swim, or use a hot tub until your health care provider approves. You may only beallowed to take showers for 2???3 weeks. ? Keep your dressing dry until your health care provider says it can be removed. ? Try to have someone at home with you for the first 1???2 weeks to help with your daily chores. ? Wear compression stockings as told by your health care provider. These stockings help to prevent blood clots and reduce swelling in your legs. ? Keep all follow-up visits. This is important. Contact a health care provider if: ? You have any of these signs of infection: ? Chills or a fever. ? More redness, swelling, or pain around an incision. ? Fluid or blood coming from an incision. ? Warmth coming from an incision. ? Pus or a bad smell coming from an incision. ? An incision opens. ? You feel dizzy or light-headed. ? You have pain or bleeding when you urinate, or you are unable to urinate. ? You have abnormal vaginal discharge. ? You have pain that does not get better with medicine. Get help right away if: ? You have a fever and your symptoms suddenly get worse. ? You have severe abdominal pain. ? You have chest pain or shortness of breath. ? You faint. ? You have pain, swelling, or redness in your leg. ? You have heavy vaginal bleeding with blood clots, soaking through a sanitary pad in less than 1 hour. These symptoms may represent a serious problem that is an emergency. Do not wait to see if the symptoms will go away. Get medical help right away. Call your local emergency services (911 in the [place] Do not drive yourself to the hospital. Summary ? After the procedure, it is common to have pain and bruising around your incisions. ? Do not take baths, swim, or use a hot tub until your health care provider approves. ? Do not lift anything that is heavier than 10 lb (4.5 kg), or the limit that you are told, for one month after surgery or until your health care provider says that it is safe. ? Tell your health care provider if you have any signs or symptoms of infection after the procedure. ? Get help right away if you have severe abdominal pain, chest pain, shortness of breath, or heavy bleeding from your vagina. This information is not intended to replace advice given to you by your health care provider. Make sure you discuss any questions you have with your health care provider. Document Revised: 01/17/2021 Document Reviewed: 01/17/2021 [employer] Patient Education ?? 2021 [employer] Total Laparoscopic Hysterectomy A total laparoscopic hysterectomy is a minimally invasive surgery to remove the uterus and cervix. The fallopian tubes and ovaries can also be removed during this surgery, if necessary. This procedure may be done to treat problems such as: ? Growths in the uterus (uterine fibroids) that are not cancer but cause symptoms. ? A condition that causes the lining of the uterus to grow in other areas (endometriosis). ? Problems with pelvic support. ? Cancer of the cervix, ovaries, uterus, or tissue that lines the uterus (endometrium). ? Excessive bleeding in the uterus. After this procedure, you will no longer be able to have a baby, and you will no longer have a menstrual period. Tell a health care provider about: ? Any allergies you have. ? All medicines you are taking, including vitamins, herbs, eye drops, creams, and ncwk-qls-hilkgvn medicines. ? Any problems you or family members have had with anesthetic medicines. ? Any blood disorders you have. ? Any surgeries you have had. ? Any medical conditions you have. ? Whether you are or may be . What are the risks? Generally, this is a safe procedure. However, problems may occur, including: ? Infection. ? Bleeding. ? Blood clots in the legs or lungs. ? Allergic reactions to medicines. ? Damage to nearby structures or organs. ? Having to change from this surgery to one in which a large incision is made in the abdomen (abdominal hysterectomy). What happens before the procedure? Staying hydrated Follow instructions from your health care provider about hydration, which may include: ? Up to 2 hours before the procedure ??? you may continue to drink clear liquids, such as water, clear fruit juice, black coffee, and plain tea. Eating and drinking restrictions Follow instructions from your health care provider about eating and drinking, which may include: ? 8 hours before the procedure ??? stop eating heavy meals or foods, such as meat, fried foods, or fatty foods. ? 6 hours before the procedure ??? stop eating light meals or foods, such as toast or cereal. ? 6 hours before the procedure ??? stop drinking milk or drinks that contain milk. ? 2 hours before the procedure ??? stop drinking clear liquids. Medicines ? Ask your health care provider about: ? Changing or stopping your regular medicines. This is especially important if you are taking diabetes medicines or blood thinners. ? Taking medicines such as aspirin and ibuprofen. These medicines can thin your blood. Do not take these medicines unless your health care provider tells you to take them. ? Taking vmbo-gar-mulysot medicines, vitamins, herbs, and supplements. ? You may be asked to take medicine that helps you have a bowel movement (laxative) to prevent constipation. General instructions ? If you were asked to do bowel preparation before the procedure, follow instructions from your health care provider. ? This procedure can affect the way you feel about yourself. Talk with your health care provider about the physical and emotional changes hysterectomy may cause. ? Do not use any products that contain nicotine or tobacco for at least 4 weeks before the procedure.These products include cigarettes, chewing tobacco, and vaping devices, such as e-cigarettes. If you need help quitting, ask your health care provider. ? Plan to have a responsible adult take you home from the hospital or clinic. ? Plan to have a responsible adult care for you for the time you are told after you leave the hospital or clinic. This is important. Surgery safety Ask your health care provider: ? How your surgery site will be marked. ? What steps will be taken to help prevent infection. These may include: ? Removing hair at the surgery site. ? Washing skin with a germ-killing soap. ? Receiving antibiotic medicine. What happens during the procedure? An IV will be inserted into one of your veins. ? You will be given one or more of the following: ? A medicine to help you relax (sedative). ? A medicine to make you fall asleep (general anesthetic). ? A medicine to numb the area (local anesthetic). ? A medicine that is injected into your spine to numb the area below and slightly above the injectionsite (spinal anesthetic). ? A medicine that is injected into an area of your body to numb everything below the injection site (regional anesthetic). ? A gas will be used to inflate your abdomen. This will allow your surgeon to look inside your abdomen and do the surgery. ? Three or four small incisions will be made in your abdomen. ? A small device with a light (laparoscope) will be inserted into one of your incisions. Surgical instruments will be inserted through the other incisions in order to perform the procedure. ? Your uterus and cervix may be removed through your vagina or cut into small pieces and removed through the small incisions. Any other organs that need to be removed will also be removed this way. ? The gas will be released from inside your abdomen. ? Your incisions will be closed with stitches (sutures), skin glue, or adhesive strips. ? A bandage (dressing) may be placed over your incisions. The procedure may vary among health care providers and hospitals. What happens after the procedure? Your blood pressure, heart rate, breathing rate, and blood oxygen level will be monitored until youleave the hospital or clinic. ? You will be given medicine for pain as needed. ? You will be encouraged to walk as soon as possible. You will also use a device to help you breathe or do breathing exercises to keep your lungs clear. ? You may have to wear compression stockings. These stockings help to prevent blood clots and reduce swelling in your legs. ? You will need to wear a sanitary pad for vaginal discharge or bleeding. Summary ? Total laparoscopic hysterectomy is a procedure to remove your uterus, cervix, and sometimes the fallopian tubes and ovaries. ? This procedure can affect the way you feel about yourself. Talk with your health care provider about the physical and emotional changes hysterectomy may cause. ? After this procedure, you will no longer be able to have a baby, and you will no longer have a menstrual period. ? You will be given pain medicine to control discomfort after this procedure. ? Plan to have a responsible adult take you home from the hospital or clinic. This information is not intended to replace advice given to you by your health care provider. Make sure you discuss any questions you have with your health care provider. Document Revised: 01/17/2021 Document Reviewed: 01/17/2021 [employer] Patient Education ?? 2021 [employer] Patient Name:REYNA LAZAR I have received this information and my questions have been answered. 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 She has an allergy to haldol.?? She stated it was extrapararamidal symptoms when she was young.?? The computer says urticaria.?? I spoke to pharmacy and our pharmacist stated that she should be low risk for a reaction. She has continued nausea after prophylaxis. Will give dose of droperidol.?? Will remove scopolomine patch because of prior history of glaucoma.??Discussed with patient.?? Electronically Signed on 04/29/22 02:24 PM Josefa Mcleod MD EKG study * Miguelina Fontaine: PERFORM Event Display: Telemetry Strips Authored Date: Respiratory therapy Hospital Progress note * Domenic Britton: PERFORM Event Display: Respiratory Therapy Progress Note Authored Date: Patient is sleeping comfortably on her home NIPPV machine. Electronically Signed on 04/30/22 02:13 AM Domenic Britton History and physical note * Katie Dial: PERFORM Event Display: History and Physical Authored Date: REYNA LAZAR :1975 Age:46 years Sex:Female Primary Care Physician: Pritesh Amos MD Result Type: Gynecology Office Clinic Note Result Date: April 22, 2022 14:11 EST Result Status: Auth (Verified) Result Title/Subject: Abnormal uterine bnzmltgh-Oym-ny visit Performed By/Author: César Patel MD on April 22, 2022 14:12 EST Verified By: César Patel MD on April 22, 2022 14:12 EST Encounter info: [id number], [facility], Clinic, 04/22/2022 - 04/22/2022 ?? * Final Report * REYNA LAZAR :?1975 Age:??46 years Sex:??Female Visit Date:??04/22/2022 Primary Care Physician: ??Pritesh Amos MD Chief Complaint pre op 11/30/22 TLH, USVVS,BS, poss NICHOLAS History of Present Illness 46 yo with??history of??prolonged and frequent menstrual bleeding??for which Mirena IUD was placed??in 03/2021??and has failed to result in significant improvements presented for pre-op visit as she has decided to undergo hysterectomy. On presentation she appears comfortable, denies any other issues.?? Review of Systems Constitutional: [No fevers, chills, sweats, no weight loss, no weight gain] Eye: [No new visual problems]?? Respiratory: [No shortness of breath, cough] Breasts: [no new lumps, skin changes, nipple discharge] Cardiovascular: [No chest pain, palpitations, syncope] Gastrointestinal: [No nausea, vomiting, diarrhea] Genitourinary: [No blood in urine, no urinary urgency, frequency, leakage, no painful urination, nodifficulty urinating] Senior Sales Operations Analyst: [no unexpected vaginal bleeding, odor, discharge, no vulvar itching, pain, dryness, painful and heavy menses, no pelvic pain, no decreased libido, no inability to have an orgasm] Heme/Lymph: [Negative for bruising tendency, swollen lymph glands] Endocrine: [Negative for cold intolerance, new unexpected hair growth] Skin: [No bruises, abrasions] Psychiatric: [No anxiety, depression]?? Physical Exam ?Vitals & Measurements ?BP:??128/66?HT:??163??cm?? WT:??115.5??kg?? BMI:??43.47?? BSA:??2.29?? Constitutional General Appearance: healthy-appearing, well-nourished, well-developed ?? Psychiatric Orientation: to time, to place, to person Mood and Affect: active and alert, normal mood, normal affect ?? Skin Appearance: no rashes, no lesions ?? Lungs: CTAB ?? CVS: RRR ?? Abdomen Auscultation/Inspection/Palpation: normal bowel sounds, soft, non-distended, no tenderness, no hepatomegaly, no splenomegaly, no masses, no CVA tenderness Hernia: none palpated ?? Vulva: no masses, no atrophy, no lesions Vagina: no tenderness, no erythema, no abnormal vaginal discharge, no vesicle(s) or ulcers, no cystocele, no rectocele Cervix: grossly normal, no discharge, no cervical motion tenderness, IUD string seen Uterus: normal size, normal shape, midline, no uterine prolapse, mobile, non-tender Bladder/Urethra: normal meatus, no urethral discharge, no urethral mass, bladder non distended Adnexa/Parametria: no parametrial tenderness, no parametrial mass, no adnexal tenderness, no ovarian mass Assessment/Plan 1.??Abnormal uterine bleeding??N93.9 ?Ordered: ABO/Rh, Blood, Routine, 04/22/22, Once, Lab Collect, Abnormal uterine bleeding, Order for future visit CBC w/ Diff, Blood, Routine, 04/22/22, Once, Lab Collect, Abnormal uterine bleeding, Order for future visit ?? 46 yo with??history of??prolonged and frequent menstrual bleeding??for which Mirena IUD was placed??in 03/2021??and has failed to result in significant improvements??seen for pre-op visit ROBERTA Segundo+ BS. Procedure, risks and benefits were explained. Questions answered. Future Orders ??ABO/Rh, Blood, Routine, 04/22/22, Once, Lab Collect, Abnormal uterine bleeding, Order for future visit ??CBC w/ Diff, Blood, Routine, 04/22/22, Once, Lab Collect, Abnormal uterine bleeding, Order for future visit Problem List/Past Medical History Ongoing ?Acquired pes planus of right foot ??Anal fissure ??Arthralgia of the ankle and/or foot ??Asthma ??Bipolar disorder ??Depressive disorder ??Difficulty passing urine ??Intermenstrual bleeding - irregular ??Irregular periods ??IUCD status ??Morbid obesity ??Obstructive sleep apnea syndrome ??Pain in right foot ??Pain of breast ??Retention of urine ??Snoring ??Urinary incontinence Historical ? Procedure/Surgical History ???PAP test date (08/15/2015)???Tubal ligation (05/31/2003)???Cholecystectomy (05/10/1997)???Biopsy of liver???Gastric bypass???Back surgery ?? Medications ??ARIPiprazole 15 mg oral tablet, 15 mg= 1 tab, Oral, Daily ??ciclopirox 0.77% topical cream, See Instructions ??Citracal + D ??Colace 100 mg oral capsule, 200 mg= 2 cap, Oral, Daily ??erythromycin 2% topical gel, 1 harleen, Topical, Daily ??Flovent HFA 110 mcg/inh inhalation aerosol, 2 puffs, Inhale, BID ??FLUoxetine (Eqv-Prozac) 20 mg oral tablet, 1 tab, Oral, Daily ??gabapentin 600 mg oral tablet, See Instructions ??ibuprofen 600 mg oral tablet, 600 mg= 1 tab, Oral, every 8 hr ??GERARDO pap pressure change, See instructions ??levalbuterol 45 mcg/inh inhalation aerosol, 2 puffs, Inhale, every 6 hr, PRN ??magnesium oxide 400 mg (241.3 mg elemental magnesium) oral tablet, 400 mg= 1 tab, Oral, Daily ??melatonin 3 mg oral tablet, 3 mg= 1 tab, Oral, every night at bedtime, PRN ??Metamucil ??Mirena 52 mg intrauteral device, Intrauteral ??mirtazapine 15 mg oral tablet ??naltrexone 50 mg oral tablet, 50 mg= 1 tab, Oral, Daily ??pramipexole 1 mg oral tablet, 1 mg= 1 tab, Oral, every night at bedtime ??prazosin 2 mg oral capsule, 2 mg= 1 cap, Oral, every night at bedtime ??ProAir HFA 90 mcg/inh inhalation aerosol, 2 puffs, Inhale, every 4 hr, PRN ??Senna 8.6 mg oral tablet, 34.4 mg= 4 tab, Oral, Daily, PRN ??tamsulosin 0.4 mg oral capsule, 0.4 mg= 1 cap, Oral, BID Allergies LATEX benztropine??(Urticaria) haloperidol??(Urticaria) iodine topical??(Urticaria) Social History Alcohol ??Never Electronic Cigarette/Vaping ??Electronic Cigarette Use: Never. Home/Environment ??Lives with Spouse. Nutrition/Health ??Caffeine intake amount: 12 cups of coffee , coffee throughout the day.. Sexual ??Other contraceptive use: t/l. Substance Use ??Never Tobacco ??Never tobacco user Tobacco Use:. Family History ??Heart disease: Mother, Father and Grandmother (P). ??Kidney disease: Father. ??Malignant tumor of breast: Daughter and Grandmother (P). ? Immunizations ??Vaccine ??Date ??Status ??influenza virus vaccine, inactivated ??03/03/2022 ??Given ??SARS-CoV-2 (COVID-19) mRNA-1273 vaccine ??10/10/2021 ??Recorded Comments : 2nd booster ??[id number]-[id number]-1273 (booster only) vacc ??03/30/2021 ??Recorded ??influenza virus vaccine, live ??02/25/2021 ??Recorded ??SARS-CoV-2 (COVID-19) Ad26 vaccine ??10/16/2020 ??Recorded ??influenza virus vaccine, live ??06/02/2019 ??Recorded ? Signature Line Electronically Signed on 04/22/22 02:12 PM César Patel MD [1] [1]??Abnormal uterine yfrihwzu-Tqp-iz visit; César Patel MD 04/22/2022 14:11 EST Electronically Signed on 04/24/22 01:15 PM Katie Dial Mahmood Reza MD: PERFORM Event Display: History and Physical Authored Date: [id number] H&P reviewed, patient examined, no changes Electronically Signed on 04/29/22 09:44 AM César Patel MD Discharge summary * Amauri Salgado MD: PERFORM Event Display: Discharge Summary Authored Date: [id number] REYNA LAZAR :1975 Age:46 years Sex:Female Visit Date:04/29/2022 Primary Care Physician: Remedios DORINDA, Pritesh Washington MD Hospital Course S: She?? reports that she is?? doing well today. No bleeding, min pain. She is trena PO. She has ambulated. Her rivers is still in place. ?? O: Afeb, VS NL Abd: soft, NT Incs: c/d/i ?? A/P POD 1 s/p LAVH/BS/lap USVVS and doing well. The patient did well overnight and her pain is wellcontrolled. She needs?? to have her rivers removed. She is ready for discharge otherwise. ?? - discharge to home - follow up with Dr Dunbar as scheduled - her pain meds have already been sent to the pharmacy - call with any concerns Physical Exam Vitals & Measurements T:??37.6?C ??(Temporal Artery)?? TMIN:??35.9?C ??(Temporal Artery)?? TMAX:??37.6?C ??(Temporal Artery)?? HR:??83??(Peripheral)?? RR:??18?? BP:??102/51?? SpO2:??93%?? HT:??163??cm?? WT:??114??kg?? BMI:??42.91?? Pain Score:??6?? O2 Flow Rate:??2?? O2 Therapy:??Room air?? Medications Inpatient acetaminophen, 650 mg= 2 tab, Oral, every 4 hr, PRN albuterol, 180 mcg= 2 inh, Inhale, every 4 hr, PRN ARIPiprazole, 15 mg= 3 tab, Oral, Daily bisacodyl, 10 mg= 1 supp, [place], BID, PRN Dextrose 5% in Lactated Ringers Injection 1,000 mL, 1000 mL, IV diphenhydrAMINE, 25 mg= 1 cap, Oral, every 4 hr, PRN FLUoxetine, 20 mg= 1 cap, Oral, Daily HYDROmorphone, 2 mg= 1 tab, Oral, every 4 hr (seven), PRN ibuprofen, 600 mg= 1 tab, Oral, every 6 hr, PRN ketorolac, 15 mg= 0.5 mL, IV Push, every 6 hr (seven) Lactated Ringers Injection 1,000 mL, 1000 mL, IV lidocaine 1% injectable solution, 5 mg= 0.5 mL, Intradermal, As Directed, PRN melatonin 3 mg oral tablet, 3 mg= 1 tab, Oral, every night at bedtime, PRN Milk of Magnesia, 30 mL, Oral, BID, PRN mometasone 220 mcg/inh inhalation aerosol powder, 1 puff, Inhale, BID RT morphine, 5 mg= 1 mL, IV Push, every 2 hr, PRN naloxone, 0.08 mg= 0.2 mL, IV Push, every 2 min, PRN Normal Saline Flush, 10 mL, IV Push, every 12 hr (seven) ondansetron, 4 mg= 2 mL, IV Push, every 4 hr, PRN pramipexole, 1 mg= 1 tab, Oral, every night at bedtime prazosin, 2 mg= 2 cap, Oral, every night at bedtime tamsulosin, 0.4 mg= 1 cap, Oral, BID Home acetaminophen 325 mg oral tablet, 650 mg= 2 tab, Oral, every 4 hr, PRN albuterol 90 mcg/inh aerosol inhaler, 180 mcg, Inhale, every 4 hr, PRN ARIPiprazole 15 mg oral tablet, 15 mg= 1 tab, Oral, Daily ciclopirox 0.77% topical cream, See Instructions Citracal + D Colace 100 mg oral capsule, 200 mg= 2 cap, Oral, Daily Dilaudid 2 mg oral tablet, 2 mg= 1 tab, Oral, every 4 hr erythromycin 2% topical gel, 1 harleen, Topical, Daily Flovent HFA 110 mcg/inh inhalation aerosol, 2 puffs, Inhale, BID FLUoxetine (Eqv-Prozac) 20 mg oral tablet, 1 tab, Oral, Daily FLUoxetine 20 mg oral tablet, 20 mg= 1 tab, Oral, Daily gabapentin 600 mg oral tablet, See Instructions HYDROmorphone 2 mg oral tablet, 2 mg= 1 tab, Oral, every 4 hr (seven), PRN GERARDO pap pressure change, See instructions levalbuterol [...] 34.4 mg= 4 tab, Oral, Daily, PRN tamsulosin 0.4 mg oral capsule, 0.4 mg= 1 cap, Oral, BID Procedure/Surgical History ???Laparoscopy, surgical, with vaginal hysterectomy, for uterus 250 g or less; with removal of tube(s) and/or ovary(s) (04/29/2022)???PAP test date (08/15/2015)???Tubal ligation (05/31/2003)???Cholecystectomy (05/10/1997)???Biopsy of liver???Gastric bypass???Back surgery Social History Alcohol Never Electronic Cigarette/Vaping Electronic Cigarette Use: Never. Home/Environment Lives with Spouse. Feels unsafe at home: No. Nutrition/Health Caffeine intake amount: 12 cups of coffee , coffee throughout the day.. Sexual Other contraceptive use: t/l. Substance Use Never Tobacco Never tobacco user Tobacco Use:. Discharge Plan 1.??S/P hysterectomy??Z90.710 Orders: Discharge Patient, 04/30/22 7:56:00 EST, Home Independently, Constant Indicator All Diagnoses This Visit S/P hysterectomy Patient Education Total Laparoscopic Hysterectomy, Care After Total Laparoscopic Hysterectomy Medication Reconciliation New Prescription acetaminophen (acetaminophen 325 mg oral tablet)2 tab Oral (given by mouth) every 4 hours as neededpain. ?? HYDROmorphone (Dilaudid 2 mg oral tablet)1 tab Oral (given by mouth) every 4 hours. Refills: 0. ?? HYDROmorphone (HYDROmorphone 2 mg oral tablet)1 tab Oral (given by mouth) every 4 hours (scheduled)as needed pain. ?? mometasone (mometasone 220 mcg/inh inhalation aerosol powder) ?? Changed FLUoxetine (FLUoxetine (Eqv-Prozac) 20 mg oral tablet)1 tab Oral (given by mouth) every day. 60 EA,TAKE 1 TABLETS BY MOUTH DAILY FOR 2 WEEKS THEN TAKE 2 TABLETS DAILY THERAFTER. ?? FLUoxetine (FLUoxetine 20 mg oral tablet)1 tab Oral (given by mouth) every day. ?? albuterol (albuterol 90 mcg/inh aerosol inhaler)180 Micrograms Inhale (breathe in) every 4 hours asneeded other (see comment). ?? albuterol (ProAir HFA 90 mcg/inh inhalation aerosol)2 Puffs Inhale (breathe in) every 4 hours as needed other (see comment). as needed. ?? Unchanged ARIPiprazole (ARIPiprazole 15 mg oral tablet)1 tab Oral (given by mouth) every day. ?? calcium-vitamin D (Citracal + D) ?? ciclopirox topical (ciclopirox 0.77% topical cream)APPLY TO THE AFFECTED AND SURROUNDING AREAS OF SKIN BY TOPICAL ROUTE 2 TIMES PER DAY IN THE MORNING AND EVENING. ?? DME RESP CPAP (GERARDO pap pressure change)increase auto CPAP 11-22 cmH2O [facility] # [id number]. Refills: 0. ?? docusate (Colace 100 mg oral capsule)2 Capsules Oral (given by mouth) every day. ?? erythromycin topical (erythromycin 2% topical gel)1 Application Topical (on the skin) every day. ?? fluticasone (Flovent HFA 110 mcg/inh inhalation aerosol)2 Puffs Inhale (breathe in) 2 times a day. ?? gabapentin (gabapentin 600 mg oral tablet)take 3 tablets in the morning, 2 tablets at noon, and 2 tablets at night. ?? levalbuterol (levalbuterol 45 mcg/inh inhalation aerosol)2 Puffs Inhale (breathe in) every 6 hours as needed other (see comment). as needed. ?? levonorgestrel (Mirena 52 mg intrauteral device)Intrauteral. ?? magnesium oxide (magnesium oxide 400 mg (241.3 mg elemental magnesium) oral tablet)1 tab Oral (given by mouth) every day. ?? pramipexole (pramipexole 1 mg oral tablet)1 tab Oral (given by mouth) every night at bedtime. ?? prazosin (prazosin 2 mg oral capsule)1 Capsules Oral (given by mouth) every night at bedtime. ?? psyllium (Metamucil) ?? senna (Senna 8.6 mg oral tablet)4 tab Oral (given by mouth) every day as needed as needed for constipation. ?? tamsulosin (tamsulosin 0.4 mg oral capsule)1 Capsules Oral (given by mouth) 2 times a day. ?? Discontinued ibuprofen (ibuprofen 600 mg oral tablet)1 tab Oral (given by mouth) every 8 hours. as needed. ?? melatonin (melatonin 3 mg oral tablet)1 tab Oral (given by mouth) every night at bedtime as needed as needed for insomnia. ?? mirtazapine (mirtazapine 15 mg oral tablet) ?? naltrexone (naltrexone 50 mg oral tablet)1 tab Oral (given by mouth) every day. Electronically Signed on 04/30/22 07:59 AM Amauri Salgdao MD Patient Care team information Personnel [facility]: [facility] Address: Address: [address]
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
--- OUTSIDE RECORDS SUMMARY | 2023-05-13 22:35 | XMS_ITS | Continuity of Care Document ---
Author Name Unknown Organization [facility] Address [address] [place] [address] Care Team Providers Care Talend Developer Name Role Phone [facility]ritesh Primary Care Physician Encounter [facility] Date(s): 01/20/23 - 01/20/[address] [address] Encounter Diagnosis Encounter for screening for malignant neoplasm of colon(Final) - Other hemorrhoids(Final) - Discharge Disposition: Home or Self Care Attending Physician: Cameron Aceves MD Admitting Physician: Cameron Aceves MD Referring Physician: Cameron Aceves MD Allergies, Adverse Reactions, Alerts Substance Reaction Severity Status LATEX Unknown Active haloperidol Urticaria Unknown Active benztropine Urticaria Unknown Active iodine topical Urticaria Unknown Active shellfish Anaphylaxis Severe Active Kiwi Urticaria Severe Active Circle Fruit Urticaria Unknown Active Maple Anaphylactic reaction Severe Active Milk Unknown Unknown Active Mushroom Anaphylactic reaction Severe Active Assessment and Plan Future Appointments Functional Status 01/20/23 ADLs Independent Recent Travel History No recent travel Other exposure to Infectious Disease Non e Immunizations Given and Recorded Vaccine Date Status Refusal Reason influenza virus vaccine, inactivated 03/03/22 Give n SARS-CoV-2 (COVID-19) mRNA-1273 vaccine 1 10/10/21 Recorded [id number]-1273 (booster only) vacc 03/30/21 Recorded influenza virus [...] increase auto CPAP 11-22 cmH2O NPI # [id number], Supply, See instructions, # 1 EA, 0 [...] Tubal ligation 05/30/03 Completed Cholecystectomy 4 05/09/97 [facility] ed Back surgery Completed Biopsy of liver 5 [facility] ed Gastric bypass 6 Complete d LAVH, BS, Lap. USVVS pap nl, hpv neg, next pap due 07/2020 pap nl, HPV neg, next pap in 5 yrs 2026 4Laparoscopic 5several [address], 07/2002 Vital Signs Most recent to oldest [Reference Range]: 1 2 3 Temperature Temporal Artery [36-38 Deg C] 35.9 Deg C *LOW* (01/20/23 11:34 AM) 35.4 Deg C *LOW* (01/20/23 11:03 AM) 36.7 Deg C (01/20/23 9:24 AM) Temperature Temporal Artery (DegF) [97.3-100 Deg F] 96.62 Deg F *LOW* (01/20/23 11:34 AM) 95.72 Deg F *LOW* (01/20/23 11:03 AM) Peripheral Pulse Rate [60-100 bpm] 88 bpm (01/20/23 11:34 AM) 79 bpm (01/20/23 11:20 AM) 75 bpm (01/20/23 11:15 AM) Heart Rate Monitored [60-100 bpm] 88 bpm (01/20/23 11:34 AM) 79 bpm (01/20/23 11:20 AM) 75 bpm (01/20/23 11:15 AM) Respiratory Rate [12-24 br/min] 18 br/min (01/20/23 11:34 AM) 21 br/min (01/20/23 11:20 AM) 20 br/min (01/20/23 11:15 AM) Blood Pressure [90-140/60-90 mmHg] 110/67mmHg (01/20/23 11:34 AM) 134/106mmHg (01/20/23 11:20 AM) 122/60mmHg (01/20/23 11:15 AM) Mean Arterial Pressure, Cuff [65-140 mmHg] 81 mmHg (01/20/23 11:34 AM) 115 mmHg (01/20/23 11:20 AM) 81 mmHg (01/20/23 11:15 AM) Weight 108.700 kg (01/20/23 9:24 AM) Weight Dosing 108.700 kg (01/20/23 9:24 AM) Weight Estimated 114.00 kg (01/13/23 9:57 AM) Height 162.000 cm (01/20/23 9:24 AM) Height/Length Dosing 162.000 cm (01/20/23 9:24 AM) Body Mass Index 41.420 kg/m2 (01/20/23 9:24 AM) Social History Social History Type Response Tobacco Never tobacco user T obacco Use:. Sex Female Hospital Discharge Instructions Patient Education 01/20/2023 10:17:07 ss colonoscopy discharge instructions COLONOSCOPY / SIGMOIDOSCOPY Hemorrhoids, no other findings. 10 year follow up Following day: Return to full activity, including work. Diet: Eat and drink normally, unless instructed otherwise. Treatment for common after affects: Mild abdominal pain, bloating, or excessive gas: Rest, eat lightly and use a heating pad. Symptoms to watch for and report to your physician: SEVERE abdominal pain or bloating. Fever within 24 hours after procedure. A large amount of rectal bleeding. (A small amount of blood from the rectum is not serious, especially if hemorrhoids are present.) If you have had a Colonoscopy: Do not attempt to drive a vehicle or operate power equipment of any kind for at least 24 hours after discharge from the hospital. Do not consume alcoholic beverages or other mood-altering drugs on the day of surgery. Mild irritation at needle site: Apply warm, moist pack to area for 20 minutes four times a day for 2-3 days. Call physician if persistent redness and/or drainage at needle site. In the event of any problems after surgery, do not hesitate to contact your doctor, [facility] , or the Emergency Room at [phone]. Discharge instructions * Yulisa Varma Joe: PERFORM Event Display: Discharge Instructions Authored Date: [id number] REYNA LAZAR :1975 Age:47 years Sex:Female Visit Date:01/20/2023 Primary Care Physician: Pritesh Amos MD Hospital Discharge Instructions We would like to thank you for allowing us to assist you with your healthcare needs. The following includes patient education materials and information regarding your injury/illness. Your Summary Your Care Team Admitting Physician - Cameron Aceves MD Attending Physician - Cameron Aceves MD Primary Care Physician - Remedios BUNCH, Pritesh Washington MD Referring Physician - Cameron Aceves MD Discharge Vitals Temperature??(Temporal Artery) 98.1 ??F (36.7 ??C) Heart Rate??(Peripheral) 70 Respiratory Rate?? 16 Blood Pressure?? 139/80?? Height?? 63.78 in (162.000 cm) Weight?? 239.68 lb (108.700 kg) BMI?? 41.420 Education Materials COLONOSCOPY / SIGMOIDOSCOPY ? Hemorrhoids, no other findings. 10 year follow up ? Following day: Return to full activity, including work. Diet: Eat and drink normally, unless instructed otherwise. ? Treatment for common after affects: Mild abdominal pain, bloating, or excessive gas: Rest, eat lightly and use a heating pad. ? Symptoms to watch for and report to your physician: SEVERE abdominal pain or bloating. ? Fever within 24 hours after procedure. ? A large amount of rectal bleeding. (A small amount of blood from the rectum is not serious, especially if hemorrhoids are present.) ? If you have had a Colonoscopy: Do not attempt to drive a vehicle or operate power equipment of any kind for at least 24 hours after discharge from the hospital. ? Do not consume alcoholic beverages or other mood-altering drugs on the day of surgery. ? Mild irritation at needle site: Apply warm, moist pack to area for 20 minutes four times a day for 2-3 days. ? Call physician if persistent redness and/or drainage at needle site. ? In the event of any problems after surgery, do not hesitate to contact your doctor, [facility] , or the Emergency Room at [phone]. Patient/Structural Engineering Project Manager Signature Patient Name:REYNA LAZAR I have received this information and my questions have been answered. Patient/Structural Engineering Project Manager Name: Patient/Structural Engineering Project Manager Signature: Relationship to Patient: Witness Name/Signature: Date: Electronically Signed on: 01/20/2023 11:17 EDTSigned by:PAF History and physical note * Bernadette Wheeler: PERFORM Event Display: History and Physical Authored Date: [id number] * Cameron Aceves MD: PERFORM Event Display: History and Physical Authored Date: [id number] REYNA LAZAR :1975 Age:47 years Sex:Female Visit Date:01/20/2023 Primary Care Physician: Remedios BUNCH, Pritesh Washington MD See paper H&P; pt examined. Proceed as planned.? Cameron Aceves MD 01/20/2023 ?? Electronically Signed on 01/20/23 09:54 AM Cameron Aceves MD * Kathy Bernal: PERFORM Event Display: History and Physical Authored Date: [id number] REYNA LAZAR :1975 Age:47 years Sex:Female Primary Care Physician: Pritesh Amos MD Screening colonoscopy. Previous colonoscopies have been scanned into [employer] Electronically Signed on 12/24/22 07:15 AM Kathy Bernal Patient Care team information Care Team Personnel Name: Pritesh Amos MD Position: No Access Member Role: Informed Provider Address: Address: [place] [address]- Name: Sulma Casanova TAX ACCOUNTING MANAGER Position: Physician Member Role: Nurse Practitioner Address: Address: [address] [place] [address] Care Team Related Persons Name: JB ROCHA Address: [address] [phone] Name: JEANNE LAZAR Address: Home [address] [facility] [address] [place] [phone]
== END 2023-05-13 22:30 | disposition home or self-care (01) ==
LOC: NCHCN 22:29
PROVIDERS: PCP Internal Medicine; Visit Provider Internal Medicine
DX: K91.2 Postsurgical malabsorption, not elsewhere classified (principal); G25.81 Restless legs syndrome; E66.8 Other obesity
CPT/HCPCS: 80053; 83036; 83735; 85025

== ENCOUNTER 2024-02-23 16:38 | Outpatient (REF) | payer BC, SELFPAY ==
--- OUTSIDE RECORDS SUMMARY | 2024-02-23 16:42 | XMS_ITS | Continuity of Care Document ---
Author Organization [facility] Address [address] [place] [address] Care Team Providers Care Corporate Director Talent Assessment Name Role Phone Pritesh Amos Primary Care Physician Encounter [facility] Date(s): 08/24/23 - 08/24/[address] [address] Discharge Disposition: Home or Self Care Attending Physician: Pritesh Amos MD Admitting Physician: Pritesh Amos MD Referring Physician: Pritesh Amos MD Allergies, Adverse Reactions, Alerts Substance Reaction Severity Status LATEX Unknown Active haloperidol Urticaria Unknown Active benztropine Urticaria Unknown Active iodine topical Urticaria Unknown Active shellfish Anaphylaxis Severe Active Kiwi Urticaria Severe Active [place] Fruit Urticaria Unknown Active Maple Anaphylactic reaction Severe Active Milk Unknown Unknown Active Mushroom Anaphylactic reaction Severe Active Assessment and Plan Future Appointments Immunizations Given and Recorded Vaccine Date Status Refusal Reason influenza virus vaccine, inactivated 03/03/22 Give n SARS-CoV-2 (COVID-19) mRNA-1273 vaccine 1 10/10/21 Recorded ANOA-XmO-1-mRNA-1273 (booster only) vacc 03/30/21 Recorded influenza virus [...] increase auto CPAP 11-22 cmH2O NPI # [id number], Supply, See instructions, # 1 EA, 0 [...] Tubal ligation 05/30/03 Completed Cholecystectomy 5 05/09/97 Complet ed Back surgery Completed Biopsy of liver 6 Complet ed Gastric bypass 7 Complete d 89 yr cb 211/30 LAVH, BS, Lap. USVVS pap nl, hpv neg, next pap due 07/2020 pap nl, HPV neg, next pap in 5 yrs 2026 5Laparoscopic 6several [address]65, 07/2002 Results Laboratory List Name Date Automated Diff 08/24/23 CBC w/ Diff 08/24/23 Comprehensive Metabolic Panel 08/24/23 Most recent to oldest [Reference Range]: 1 WBC [5.0-10.0 x10^3/mcL] 8.2 x10^3/mcL (08/24/23 11:57 AM) RBC [4.1-5.3 x10^6/mcL] 4.2 x10^6/mcL (08/24/23 11:57 AM) Neutro Auto [40.0-75.0 %] 56.7 % (08/24/23 11:57 AM) Lymph Auto [20.0-50.0 %] 33.9 % (08/24/23 11:57 AM) Towner Auto [2.0-15.0 %] 8.2 % (08/24/23 11:57 AM) Basophil Auto [0.0-1.0 %] 0.6 % (08/24/23 11:57 AM) BUN [7-18 mg/dL] 20 mg/dL *HI* (08/24/23 11:57 AM) Glucose Level [74-106 mg/dL] 109 mg/dL *HI* (08/24/23 11: AM) Potassium Level [3.5-5.1 mmol/L] 3.3 mmo l/L *LOW* (08/24/23: AM) MCV [80.0-96.0 fL] 97.1 fL *HI* (08/24/23 11:57 AM) AST [15-37 unit/L] 13 unit/L *LOW* (08/24/23 AM) ALT [14-59 unit/L] 26 unit/L (08/24/23: AM) MCHC [31.0-35.0 g/dL] 33.9 g/dL (08/24/23: AM) Sodium Level [136-145 mmol/L] 138 mmol/L (08/24/23: AM) Hct [37.0-47.0 %] 40.7 % (08/24/23: AM) Calcium Level [8.5-10.1 mg/dL] 9.0 mg/dL (08/24/23 11: AM) Albumin Level [3.4-5.0 g/dL] 3.9 g/dL (08/24/23 11:57 AM) Protein Total [6.4-8.2 g/dL] 7.3 g/dL (08/24/23 11:57 AM) MCH [26.0-32.0 pg] 32.9 pg *HI* (08/24/23 11:57 AM) Neutro Absolute 4.6 x10^3/mcL *NA* (08/24/23 11:57 AM) Bilirubin Total [0.2-1.0 mg/dL] 0.3 mg/d L (08/24/23 11: AM) Hgb [12.0-16.0 g/dL] 13.8 g/dL (08/24/23 11:57 AM) Alk Phos [46-146 unit/L] 107 unit/L (08/24/23 11:57 AM) Platelets [130-450 x10^3/mcL] 206 x10^3/ mcL (08/24/23 11:57 AM) CO2 [21-32 mmol/L] 23 mmol/L (08/24/23 11:57 AM) eGFR Non-AA [>=60] 89 (08/24/23 11:57 AM) eGFR AA [>=60] 89 (08/24/23 11:57 AM) Chloride Level [98-107 mmol/L] 104 mmol/ L (08/24/23 11:57 AM) RDW-CV [11.5-14.5 %] 12.6 % (08/24/23 11:57 AM) Imm Gran Auto [0.0-0.9 %] 0.1 % (08/24/23 11:57 AM) Creatinine Level [0.55-1.02 mg/dL] 0.81 mg/dL (08/24/23 11:57 AM) Eos, Auto [1.0-6.0 %] 0.5 % *LOW* (08/24/23 11:57 AM) Social History Social History Type Response Tobacco Never tobacco user T obacco Use:. Sex Female Patient Care team information Care Team Personnel Name: Remedios Pritesh SETH MD Position: No Access Member Role: Informed Provider Address: Address: [facility] [address] Name: Sulma Casanova REGISTERED TRAVEL NURSE Position: Physician Member Role: Nurse Practitioner Address: Address: [address] [place] [address] Care Team Related Persons Name: JB ROCHA Address: Alternate [address] [phone] Address: Home [address] [place], [place] [id number] Address: Mailing [address] [place] [id number] Name: JEANNE LAZAR Address: Home [address] [id number]
--- OUTSIDE RECORDS SUMMARY | 2024-02-23 16:42 | XMS_ITS | Encounter Summary ---
Author Organization [facility] [place] [address] Care Team Providers Care Tankroom Worker Name Role Phone Pritesh Whittaker MD Primary Care Provider [phone] Reason for Visit * Reason Onset Date Comments Other 06/11/2016 Encounter Details Date Type Department Care Team ([facility] st Contact Info) Description 06/11/2016 Telephone [place] [id number] Katie Valerio APRN [facility] [place] [address] Other Social History Tobacco Use Types Packs/Day Years Used Date Smoking Tobacco: Former Cigarettes Q uit: 04/01/2005 Smokeless Tobacco: Never Alcohol Use Standard Drinks/Week Comments No 0 (1 standard drink = 0.6 oz pur e alcohol) Sex and Gender Information Value Date Recorded Sex Assigned at Not on file Gender Identity Not on file Sexual Orientation Not on file documented as of this encounter Miscellaneous Notes * Telephone Encounter - Rachel Márquez RN - 06/18/2016 1:28 PM EST Call placed to patient. Left message to inform patient that a copy of the lab order is being mailedto her. It can be drawn wherever she wants to have it done. Asked that a copy of the results be sent to Katie Valerio. * Telephone Encounter - Elza Bryan - 06/11/2016 2:25 PM EST Caller: Debbie Best number to reach caller: [phone] Reason for call: patient called back for Rachel. She called her local hospital to see if they had standing orders for her, They do NOT Please forward orders to [facility]. Please call patient with any questions documented in this encounter Plan of Treatment Not on file documented as of this encounter Visit Diagnoses Not on filedocumented in this encounter Care Teams Tankroom Worker Relationship Specialty Start Date End Date Pritesh Whittaker MD [address] [place] [id number] PCP - General General Internal Medicine 11/12/15 documented as of this encounter
--- OUTSIDE RECORDS SUMMARY | 2024-02-23 16:42 | XMS_ITS | Continuity of Care Document ---
Author Organization [facility] Address [address] [place] [address] Care Team Providers Care Corporate Quality Engineer Name Role Phone [place] IPHCPritesh Primary Care Physician [facility]14[facility] - 06/14/23 [facility] [address] [place] [address] Discharge Disposition: Home or Self Care Attending Physician: Lady Groves APRN Admitting Physician: Lady Groves APRN Referring Physician: Lady Groves APRN Allergies, Adverse Reactions, Alerts Substance Reaction Severity Status LATEX Unknown Active haloperidol Urticaria Unknown Active benztropine Urticaria Unknown Active iodine topical Urticaria Unknown Active shellfish Anaphylaxis Severe Active [place] Fruit Urticaria Unknown Active Maple Anaphylactic reaction Severe Active Milk Unknown Unknown Active Mushroom Anaphylactic reaction Severe Active Kiwi Urticaria Severe Active Assessment and Plan Future Appointments Immunizations Given and Recorded Vaccine Date Status Refusal Reason influenza virus vaccine, inactivated 03/03/22 Give n SARS-CoV-2 (COVID-19) mRNA-1273 vaccine 1 10/10/21 Recorded JYTW-LxP-3-mRNA-1273 (booster only) vacc 03/30/21 Recorded influenza virus [...] increase auto CPAP 11-22 cmH2O NPI # [id number], Supply, See instructions, # 1 EA, 0 [...] 7 Complete d 89 yr cb 211/30 [place], BS, Lap. USVVS [id number] pap nl, hpv neg, next pap due 07/2020 pap nl, HPV neg, next pap in 5 yrs 2026 5Laparoscopic 6several [address], 07/2002 Social History Social History Type Response Tobacco Never tobacco user T obacco Use:. Sex Female Patient Care team information Care Team Personnel Name: Remedios Pritesh SETH MD Position: No Access Member Role: Informed Provider Address: Address: [facility] [address] Name: Sulma Casanova ANIMAL PHYSIOLOGY TEACHER Position: Physician Member Role: Nurse Practitioner Address: Address: [address] [place] [address] [place] [address] [place] Care Team Related Persons Name: JB ROCHA Address: Alternate [address] [phone] Address: Home [address] [place] [id number] Address: Mailing [address] [phone] Name: JEANNE LAZAR Address: Home [address] [place] [phone]
--- OUTSIDE RECORDS SUMMARY | 2024-02-23 16:42 | XMS_ITS | Continuity of Care Document ---
Author Organization [facility] Address [address] [place] [address] Care Team Providers Care Accountant Bookkeeper Name Role Phone Pritesh Amos Primary Care Physician [facility]25/23 - 05/25/[address] [address] Discharge Disposition: Home or Self Care Attending Physician: Pritesh Amos MD Admitting Physician: Pritesh Amos MD Referring Physician: Pritesh Amos MD Allergies, Adverse Reactions, Alerts Substance Reaction Severity Status LATEX Unknown Active haloperidol Urticaria Unknown Active benztropine Urticaria Unknown Active iodine topical Urticaria Unknown Active shellfish Anaphylaxis Severe Active Kiwi Urticaria Severe Active [place] Fruit Urticaria Unknown Active Maple Anaphylactic reaction Severe Active Milk Unknown Unknown Active Mushroom Anaphylactic reaction Severe Active Assessment and Plan Future Appointments Immunizations Given and Recorded Vaccine Date Status Refusal Reason influenza virus vaccine, inactivated 03/03/22 Give n SARS-CoV-2 (COVID-19) mRNA-1273 vaccine 1 10/10/21 Recorded FZHF-QbO-3-mRNA-1273 (booster only) vacc 03/30/21 Recorded influenza virus [...] increase auto CPAP 11-22 cmH2O NPI # [id number], Supply, See instructions, # 1 EA, 0 [...] yr cb 211/30 CAMILLE, BS, Lap. USVVS [phone] pap nl, hpv neg, next pap due 07/2020 pap nl, HPV neg, next pap in 5 yrs 2026 5Laparoscopic 6several [address], 07/2002 Social History Social History Type Response Tobacco Never tobacco user T obacco Use:. Sex Female Patient Care team information Care Team [facility] Position: No Access Member Role: Informed Provider Address: Address: [facility] [address] Name: Sulma Casanova AUTOMATIC PINSETTER ADJUSTER Position: Physician Member Role: Nurse Practitioner Address: Address: [address] [place] [address] [place] [address] [place] Care Team Related Persons Name: JB ROCHA Address: Alternate [address] [id number] Address: Home [address] [place] [phone] Address: Mailing [address] [id number] Name: JEANNE LAZAR Address: Home [address] [place] [phone]
--- OUTSIDE RECORDS SUMMARY | 2024-02-23 16:42 | XMS_ITS | Clinical Summary ---
Author Organization [facility] Address [facility] [place] [address] Care Team Providers Care Consultant Nurse Name Role Phone Pritesh Whittaker MD Primary Care Provider [phone] Allergies Active Allergy Reactions Criticality Noted Date Comments Benztropine 04/01/2015 Pt unable to recall allergy as she was a child Haloperidol Other (See Comments) 04/01/2015 Unable to recall reaction. Took as a child Iodine Anaphylaxis High 04/01/2015 Kiwi Hives High 04/01/2015 Latex Hives 04/01/2015 [place] Hives 04/01/2015 Maple Flavor Anaphylaxis High 04/01/2015 Milk 02/24/2016 Mushroom Anaphylaxis High 04/01/2015 Shellfish Containing Products Anaphylaxis High 04/01/2015 Medications Medication Sig Dispensed Refills Start Date End Date Status polyethylene glycol (MIRALAX) 17 gram Powder in Packet Take 17 g by mouth daily. Active docusate sodium (COLACE) 100 mg Capsule Take 200 mg by mouth 2 times daily. Active levalbuterol (XOPENEX HFA) 45 mcg/actuation HFA Aerosol Inhaler Inhale 2 puffs into the lungs every 6 hours as needed. Active FLUoxetine (PROZAC) 20 mg Capsule Take 60 mg by mouth daily. Active fluticasone (FLOVENT) 110 mcg/actuation HFA Aerosol Inhaler Inhale 1 puff into the lungs 2 times daily as needed. Active tamsulosin (FLOMAX) 0.4 mg Capsule, Sust. Release 24 hr Take 0.4 mg by mouth 2 times daily. Active ferrous sulfate 325 mg (65 mg iron) Tablet Take 325 mg by mouth 2 times daily. Active multivitamin (THERAGRAN) Tablet Take 1 tablet by mouth daily. Active diclofenac (CATAFLAM) 50 mg TabletIndications :Acute post-traumatic headache, not intractable,Migra ine with aura and without status migrainosus, not intractable Take 1-2 tablets by mouth 2 times daily as needed (headache). 120 tablet 3 06/12/2015 Active hydrOXYzine (VISTARIL) 25 mg CapsuleIndication s:Acute post-traumatic headache, not intractable,Migra ine with aura and without status migrainosus, not intractable Take 1 capsule by mouth 2 times daily as needed (For headache). 60 capsule 11 06/12/2015 Active promethazine (PHENERGAN) 25 mg SuppositoryIndica tions:Acute post-traumatic headache, not intractable,Migra ine with aura and without status migrainosus, not intractable Place 1-2 suppositories rectally every 6 hours as needed (rescue for headache, nausea). 60 suppository 11 06/12/2015 Active FREESTYLE LITE STRIPS 07/20/2015 Active mirtazapine (REMERON) 15 mg Tablet Take 15 mg by mouth daily. 07/10/2015 Active naratriptan (AMERGE) 2.5 mg TabletIndications :Headache(784.0) Take 1 tablet by mouth 2 times daily as needed (for severe headaches. Limit 2 days per week.). 18 tablet 3 09/23/2015 Active gabapentin (NEURONTIN) 600 mg Tablet Take 1 tablet by mouth 3 times daily. 120 tablet 3 09/24/2015 Active cyclobenzaprine (FLEXERIL) 5 mg Tablet Take 0.5 to 1 tab, po, q 8 hours, prn, spasm 30 tablet 3 10/09/2015 Active lamoTRIgine (LAMICTAL) 25 mg Tablet Take 1 tablet in the morning and two tablets at bedtime 90 tablet 1 03/02/2016 Active Ketamine (Bulk) 100 % Powd 5 %, Gabapentin (Bulk) 100 % Powd 6 %, Diclofenac Sodium (Bulk) 100 % Powd 3 %, Lidocaine HCl (Bulk) 100 % Powd 5 % Apply topically 4 times daily. 240 g 3 10/18/2015 Active amitriptyline (ELAVIL) 100 mg TabletIndications :Chronic migraine without aura without status migrainosus, not intractable,Chron ic post-traumatic headache, not intractable 0.5 tabs nightly x 1 week then stop, Call office to discuss this prescription. 5 tablet 06/10/2016 Active Active Problems Problem Noted Date Diagnosed Date Binge eating 02/24/2016 H/O gastric bypass 02/24/2016 Attention and concentration deficit 11/12/2015 Cognitive communication deficit 11/12/2015 Chronic post-traumatic headache, not intractable 09/20/2015 Intractable chronic post-traumatic headache 07/02 Chronic migraine without aur a without status migrainosus, not intractable 07/24/2015 Medication overuse headache 07/24/2015 Acute post-traumatic headache, not intractable 0 06/12/2015 Migraine with aura and witho ut status migrainosus, not intractable 06/12/2015 Lumbar burst fracture, L1 04/05/2015 Seizure 04/05/2015 Obesity, Class III, BMI 40-49.9 (morbid obesity) 04/05/2015 Family History Medical History Relation Comments Type 2 Diabetes Brother Coronary Artery Disease Father Myocardial Infarction Father Type 2 Diabetes Father Breast Cancer Maternal Grandmother Coronary Artery Disease Mother Myocardial Infarction Mother Type 2 Diabetes Mother Type 2 Diabetes Sister Relation Status Comments Brother Father Maternal Grandmother Mother Sister Social History Tobacco Use Types Packs/Day Years Used Date Smoking Tobacco: Former Cigarettes Q uit: 04/01/2005 Smokeless Tobacco: Never Alcohol Use Standard Drinks/Week Comments No 0 (1 standard drink = 0.6 oz pur e alcohol) Sex and Gender Information Value Date Recorded Sex Assigned at Not on file Gender Identity Not on file Sexual Orientation Not on file Last Filed Vital Signs Vital Sign Reading Time Taken Comments Blood Pressure 132/83 04/08/2016 10:35 AM EST Pulse 90 04/08/2016 10:35 AM EST Temperature 36.9 ??C (98.4 ??F) 04/06/2015 4:33 PM ES T Respiratory Rate 18 04/06/2015 4:33 PM EST Oxygen Saturation 99% 10/18/2015 10: 56 AM EDT Inhaled Oxygen Concentration - - Weight 127.8 kg (281 lb 12.8 oz) 2015 10:35 AM EST Height 162.6 cm (5' 4) 04/08/2016 10:3 5 AM EST Body Mass Index 48.37 04/08/2016 10:35 AM EST Plan of Treatment Health Maintenance Due Date Last Done Comments CT Colonography 1975 Colonoscopy 1975 Colorectal Cancer Screening 1975 FIT DNA 1975 FIT 1975 Sigmoidoscopy (10 year) with FIT yearly 1975 Sigmoidoscopy 1975 HIV screen 1993 Hepatitis C Screening 1993 Hepatitis B vaccine (0-59 yrs) (1) 1994 Tdap adult (Retired) 1994 Tetanus vaccine (Retired) 1994 HPV test 2005 PAP Smear 2005 Breast Cancer Share Decision Needed 2015 Breast Cancer screening 2015 Covid-19 Vaccine ( - season) 2024 Influenza (Flu) vaccine (1 o f 1 - Influenza standard series) 01/30/2024 Medical Devices Implanted Type Area Warehouse Handler Device Identifier Shelf Expiration Date Model / Serial / Lot Bone,Crushed, Cancellous,30 cc ([id number]) - [id number] Implanted:Qty : 1 on 04/03/2015 by uYdi Mason MD at [facility] IMPLANTS N/A: Spine Lumbar [facility] - [id number] 08/15/2019 [id number] / / [id number] Putty, Bone,Progenix ,Dbm,10cc ([id number]) - [id number] Implanted:Qty : 1 on 04/03/2015 by Yudi Mason MD at [facility] IMPLANTS N/A: Spine Lumbar [employer] - [id number] 10/02/2016 [id number] / / [id number] Cap,Ed,[place] ,Lckng ([id number]) (Autoreq) - [id number] Implanted:Qty : 8 on 04/03/2015 by Yudi Mason MD at [facility] IMPLANTS N/A: Spine Lumbar DO NOT USE [employer] - [id number] 124.000 / / Elvin,Spnl,Rvr, Str,5.5mm,150 mm ([id number]) (Autoreq) - [id number] Implanted:Qty : 2 on 04/03/2015 by Yudi Mason MD at [facility] IMPLANTS N/A: Spine Lumbar DO NOT USE [employer] - [id number] 124.515 / / Conne,Elvin,T,A dj,33mm ([id number]) (Autoreq) - [id number] Implanted:Qty : 1 on 04/03/2015 by Yudi Mason MD at [facility] IMPLANTS N/A: Spine Lumbar DO NOT USE [employer] - [id number] 124.913 / / Conne,Elvin,T,A dj,48mm ([id number]) ([employer]oreq) - [id number] Implanted:Qty : 1 on 04/03/2015 by Yudi Mason MD at [facility] IMPLANTS N/A: Spine Lumbar DO NOT USE [employer] - [id number] 124.915 / / Screw,Rvr,Pdc l,6.5x45mm ([id number]) ([employer]oreq) - [id number] Implanted:Qty : 4 on 04/03/2015 by Yudi Mason MD at [facility] IMPLANTS N/A: Spine Lumbar DO NOT USE [employer] - [id number] 124.465 / / Screw,Rvr,Pdc l,6.5x50mm ([id number]) ([employer]q) - [id number] Implanted:Qty : 2 on 04/03/2015 by Yudi Mason MD at [facility] IMPLANTS N/A: Spine Lumbar DO NOT USE [employer] - [id number] 124.466 / / Screw,Rvr,Pdc l,5.5x50mm ([id number]) ([employer]oreq) - [id number] Implanted:Qty : 2 on 04/03/2015 by Yudi Mason MD at [facility] IMPLANTS N/A: Spine Lumbar DO NOT USE [employer] - [id number] 124.456 / / Advance Directives * Full Code (Latest Code Status on File) Date Activated Date Inactivated Comments 03/31/2015 7:30 PM 04/06/2015 8:23 PM Question Answer Comments Does patient have capacity to make decision: Yes Care Teams Consultant Nurse Relationship Specialty Start Date End Date Pritesh Whittaker MD [address] [place] [phone] PCP - General General Internal Medicine 11/12/15
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
--- OUTSIDE RECORDS SUMMARY | 2024-02-23 16:43 | XMS_ITS | Encounter Summary ---
Author Organization [facility] [place] [address] Care Team Providers Care Category Specialist Name Role Phone Pritesh Whittaker MD Primary Care Provider [phone] Reason for Visit * Reason Comments Medication Refill Encounter Details Date Type Department Care Team ([facility] st Contact Info) Description 06/08/2016 [place] [address] [facility] [place] [address] Chronic migraine without aura without status migrainosus, not intractable; Chronic post-traumatic headache, not intractable Social History Tobacco Use Types Packs/Day Years [...] Telephone Encounter - Rachel Márquez RN - 06/11/2016 9:01 AM EST Call made to patient. Informed her of Katie's instructions regarding the Amitriptyline. Explained to patient that Amitriptyline can affect the liver and her most recent LFTs are elevated. Patientstates she is due to have more labs drawn this month. I also encouraged the patient to call and make a sooner FUV with Katie to discuss other options for medications and migraine control. Patientverbalized good understanding and agreement with the plan. * Telephone Encounter - Katie Valerio APRN - 06/10/2016 5:29 PM EST Will reduce Amitriptyline 100mg 0.5 tab hs x 1 week then stop. No follow up was made and outside labs indicate very elevated LFT's. documented in this encounter Plan of Treatment Not on file documented as of this encounter Visit Diagnoses Diagnosis Chronic migraine without aura without status migrainosus, not intractable Chronic migraine without aura, without mention of intractable migraine without mention of status migrainosus Chronic post-traumatic headache, not intractable Chronic post-traumatic headache documented in this encounter Care Teams Category Specialist Relationship Specialty Start Date End Date Pritesh Whittaker MD [address] [place] [id number] PCP - General General Internal Medicine 11/12/15 documented as of this encounter
--- OUTSIDE RECORDS SUMMARY | 2024-02-23 16:43 | XMS_ITS | Encounter Summary ---
[place] [address] Care Team Providers Care Parts Consultant Name Role Phone Amauri Chapa MD Primary Care Provider [phone] Reason for Visit * Reason Onset Date Comments Medication Refill 09/23/2015 Encounter Details Date Type Department Care Team ([facility] st Contact Info) Description 09/23/2015 [place] [address] Emil Ritchie MD [facility] [place] [address] Headache(784.0) Social History Tobacco Use Types Packs/Day Years Used Date Smoking Tobacco: Former Cigarettes Q uit: 04/01/2005 Smokeless Tobacco: Never Alcohol Use Standard Drinks/Week Comments No 0 (1 standard drink = 0.6 oz pur e alcohol) Sex and Gender Information Value Date Recorded Sex Assigned at Not on file Gender Identity Not on file Sexual Orientation Not on file documented as of this encounter Plan of Treatment Not on file documented as of this encounter Visit Diagnoses Diagnosis Headache(784.0) Headache documented in this encounter Care Teams Parts Consultant Relationship Specialty Start Date End Date Amauri Chapa MD [address] [place] [address] [place] [id number] PCP - General 04/22/10 11/11/15 documented as of this encounter
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
--- OUTSIDE RECORDS SUMMARY | 2024-02-23 16:43 | XMS_ITS | Encounter Summary ---
Author Organization [facility] [place] [address] Care Team Providers Care Mica Paster Name Role Phone Amauri Chapa MD Primary Care Provider [phone] Encounter Details Date Type Department Care Team (Latest Contact Info) Description 05/01/2015 11:30 AM EST - 05/01/2015 11:59 PM [facility] Hospital Encounter XRay at [address] [place] [address] Yudi Mason MD [facility] [place] [address] Lumbar burst fracture, closed, initial encounter Discharge Disposition: Home Social History Tobacco Use Types Packs/Day Years Used Date Smoking Tobacco: Former Cigarettes Q uit: 04/01/2005 Smokeless Tobacco: Never Alcohol Use Standard Drinks/Week Comments No 0 (1 standard drink = 0.6 oz pur e alcohol) Sex and Gender Information Value Date Recorded Sex Assigned at Not on file Gender Identity Not on file Sexual Orientation Not on file documented as of this encounter Medications at Time of Discharge Medication Sig Dispensed Refills Start Date End Date multivitamin (THERAGRAN) Tablet Take 1 tablet by mouth daily. polyethylene glycol (MIRALAX) 17 gram Powder in Packet Take 17 g by mouth daily. docusate sodium (COLACE) 100 mg Capsule Take 200 mg by mouth 2 times daily. levalbuterol (XOPENEX HFA) 45 mcg/actuation HFA Aerosol Inhaler Inhale 2 puffs into the lungs every 6 hours as needed. FLUoxetine (PROZAC) 20 mg Capsule Take 60 mg by mouth daily. fluticasone (FLOVENT) 110 mcg/actuation HFA Aerosol Inhaler Inhale 1 puff into the lungs 2 times daily as needed. tamsulosin (FLOMAX) 0.4 mg Capsule, Sust. Release 24 hr Take 0.4 mg by mouth 2 times daily. ferrous sulfate 325 mg (65 mg iron) Tablet Take 325 mg by mouth 2 times daily. gabapentin (NEURONTIN) 600 mg Tablet Take 1 tablet by mouth 3 times daily. 120 tablet 3 05/01/2015 09/24/2015 diaZEPam (VALIUM) 5 mg Tablet Take 1 tablet by mouth every 6 hours as needed for Anxiety. 30 tablet 3 05/01/2015 10/09/2015 lamoTRIgine (LAMICTAL) 25 mg Tablet Take 1-2 tablets by mouth 2 times daily. For first 2 weeks take 25mg (1 tablet) twice daily. Week 3 take 2 pills (50mg) in the morning and 1 pill (25mg) at night. Week 4 take 50mg (2 pills) daily. 60 tablet 3 04/06/2015 03/02/2016 naproxen (NAPROSYN) 500 mg Tablet Take 500 mg by mouth 2 times daily as needed. 06/12/2015 amitriptyline (ELAVIL) 25 mg Tablet Take 25 mg by mouth nightly. 06/12/2015 documented as of this encounter Plan of Treatment Not on file documented as of this encounter Procedures Procedure Name Priority Date/Time Associated Diagnosis Comments XR LUMBAR SPINE 2 OR 3 VIEWS Routine 05/01/2015 12:10 PM EST Lumbar burst fracture, closed, initial encounter documented in this encounter Results * XR Lumbar Spine 2 Or 3 Views (GENERIC) (05/01/2015 12:10 PM EST) Anatomical Region Laterality Modality L-spine N/A Digital RadioGetGift[employer] phy Impressions 05/01/2015 1:02 PM EST IMPRESSION: 1. Patient is status post posterior T11-L3 fusion. Surgical hardware is in satisfactory position. ??A comminuted burst fracture is seen involving the [...] noted at the L4-5 and L5-S1 levels. Narrative 05/01/2015 1:02 PM EST EXAMINATION: XR LUMBAR SPINE 2 OR 3 VIEWS CLINICAL HISTORY: s/p L1 burst with instrumented fusion. 4 week f/u. Assess stability/fusion TECHNIQUE: AP and lateral COMPARISON: 04/03/[address] examination March 31, 2015 FINDINGS: Patient is status post posterior T11-L3 fusion. Surgical hardware is in satisfactory position. ??A comminuted burst fracture is seen involving the [...] are identified in the right upper quadrant. Procedure Note Varun Ceballos MD - 05/01/2015 EXAMINATION: XR LUMBAR SPINE 2 OR 3 VIEWS CLINICAL HISTORY: s/p L1 burst with instrumented fusion. 4 week f/u.Assess stability/fusion TECHNIQUE: AP and lateral COMPARISON: 04/03/[address] examination March 31, 2015 FINDINGS: Patient is status post posterior T11-L3 fusion. Surgical hardware is in satisfactory position. A comminuted burst fracture is seen involving theL1 vertebral body similar in appearance to the prior examination. Bonyalignment is unchanged. There is been slight partial interval healing of theaforementioned L1 burst fracture since prior examination. As are much better identified on the aforementioned CT, there arefractures through the base of the left transverse process of L1 and L2. Atransverse fracture is also present within the medial left lamina at the junctionwith the base of the spinous process of L1. An additional fracture is seen throughthe left superior facet of L2. Scattered degenerative changes noted in the visualized lower thoracic andlumbar spine. Bilateral facet joint hypertrophy is noted at the L4-5 and L5-J4midate. Intrauterine device is noted. Surgical clips are identified in the rightupper quadrant. IMPRESSION IMPRESSION: 1. Patient is status post posterior T11-L3 fusion. Surgical hardware isin satisfactory position. A comminuted burst fracture is seen involving theL1 vertebral body similar in appearance to the prior examination. Bonyalignment is unchanged. There is been slight partial interval healing of theaforementioned L1 burst fracture since prior examination. 2. Other posttraumatic changes identified in the lumbar spine are better appreciated on the aforementioned CT. 3. Scattered degenerative changes noted in the visualized lower thoracicand lumbar spine. Bilateral facet joint hypertrophy is noted at the L4-5 andL5-S1 levels. S Lang Mason MD IMG DX ORDERABLES documented in this encounter Visit Diagnoses Diagnosis Lumbar burst fracture, closed, initial encounter documented in this encounter Care Teams Mica Paster Relationship Specialty Start Date End Date Amauri Chapa MD [address] [place] [address] [place] [address] PCP - General 04/22/10 11/11/15 documented as of this encounter
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
--- OUTSIDE RECORDS SUMMARY | 2024-02-23 16:43 | XMS_ITS | Encounter Summary ---
Author Organization [facility] [place] [address] Care Team Providers Care Extracting Machine Operator Name Role Phone Pritesh Whittaker MD Primary Care Provider [phone] Encounter Details Date Type Department Care Team (Late st Contact Info) Description 04/01/2016 Orders [place] [phone] Yohana Chris RN Chronic migraine without aura without status migrainosus, [...] on file documented as of this encounter Progress Notes * Yohana Chris RN - 04/01/2016 10:25 AM EDT [facility] called and reported that patient's amitriptyline Rx went to them but shouldhave gone to local pharmacy. I re-sent the Rx to [facility]. documented in this encounter Plan of Treatment Not on file documented as of this encounter Visit Diagnoses Diagnosis Chronic migraine without aura without status migrainosus, not intractable Chronic migraine without aura, without mention of intractable migraine without mention of status migrainosus Chronic post-traumatic headache, not intractable Chronic post-traumatic headache documented in this encounter Care Teams Extracting Machine Operator Relationship Specialty Start Date End Date Pritesh Whittaker MD [address] [place] [id number] PCP - General General Internal Medicine 11/12/15 documented as of this encounter
--- OUTSIDE RECORDS SUMMARY | 2024-02-23 16:43 | XMS_ITS | Encounter Summary ---
Author Organization [facility] [place] [address] Care Team Providers Care Flow Floor Attendant Name Role Phone Pritesh Whittaker MD Primary Care Provider [phone] Reason for Referral * Occupational Therapy (Routine) - Specialty Diagnoses / Procedures Referred By Contac t Referred To Contact Occupational Therapy Diagnoses Cognitive communication deficit Attention and concentration deficit Day Chakraborty APRN [facility] [place] [address] Referral ID Status Reason Start Date Expiration Date V isits Requested Visits Authorized [id number] Evaluate and Treat 11/22/2015 05/20/2016 12 12 * Speech Therapy (Routine) - Specialty Diagnoses / Procedures Referred By Contac t Referred To Contact Speech Pathology Diagnoses Cognitive communication deficit Attention and concentration deficit Day Chakraborty APRN [facility] [place] [address] Referral ID Status Reason Start Date Expiration Date V isits Requested Visits Authorized [id number] Evaluate and Treat 11/22/2015 05/20/2016 12 12 Encounter Details Date Type Department Care Team (Late st Contact Info) Description 11/22/2015 Orders [place] [address] Day Chakraborty APRN [facility] [place] [place] [address] Cognitive communication deficit; Attention and concentration deficit Social History Tobacco Use Types Packs/Day Years [...] as of this encounter Plan of Treatment Scheduled Referrals Name Type Priority Associated Diagnoses Orde r Schedule Referral to Speech Therapy Outpatient Referral Routine Cognitive communication deficit Attention and concentration deficit Ordered: 11/22/2015 Referral to Occupational Therapy Outpatient Referral Routine Cognitive communication deficit Attention and concentration deficit Ordered: 11/22/2015 documented as of this encounter Visit Diagnoses Diagnosis Cognitive communication deficit Attention and concentration deficit Attention or concentration deficit documented in this encounter Care Teams Flow Floor Attendant Relationship Specialty Start Date End Date Pritesh Whittaker MD [address] [place] [id number] PCP - General General Internal Medicine 11/12/15 documented as of this encounter
--- OUTSIDE RECORDS SUMMARY | 2024-02-23 16:43 | XMS_ITS | Encounter Summary ---
Author Organization [facility] [place] [address] Care Team Providers Care Laborer Airport Maintenance Name Role Phone Pritesh Whittaker MD Primary Care Provider [phone] Reason for Visit * Reason Onset Date Comments Medication Refill 03/31/2016 Encounter Details Date Type Department Care Team (Late st Contact Info) Description 03/31/2016 [place] [phone] Katie Valerio APRN [facility] [address] Chronic migraine without aura without status migrainosus, [...] encounter Miscellaneous Notes * Telephone Encounter - Avtar Cassidy LPN - 03/31/2016 2:55 PM EDT Images from the original note were not included. PRESCRIPTION RENEWAL REQUEST FROM [facility] documented in this encounter Plan of Treatment Not on file documented as of this encounter Visit Diagnoses Diagnosis Chronic migraine without aura without status migrainosus, not intractable Chronic migraine without aura, without mention of intractable migraine without mention of status migrainosus Chronic post-traumatic headache, not intractable Chronic post-traumatic headache documented in this encounter Care Teams Laborer Airport Maintenance Relationship Specialty Start Date End Date Pritesh Whittaker MD [address] [place] [id number] PCP - General General Internal Medicine 11/12/15 documented as of this encounter
--- OUTSIDE RECORDS SUMMARY | 2024-02-23 16:43 | XMS_ITS | Encounter Summary ---
[place] [address] Care Team Providers Care Fire Alarm Inspector Name Role Phone Amauri Chapa MD Primary Care Provider [phone] Reason for Visit * Reason Onset Date Comments Medication Refill 08/08/2015 Encounter Details Date Type Department Care Team ([facility] st Contact Info) Description 08/08/2015 [place] [address] Emil Ritchie MD [facility] [place] [address] Headache(784.0) Social History Tobacco Use Types Packs/Day [...] Headache documented in this encounter Care Teams Fire Alarm Inspector Relationship Specialty Start Date End Date Amauri Chapa MD [address] [place] [address] [place] [address] PCP - General 04/22/10 11/11/15 documented as of this encounter
--- OUTSIDE RECORDS SUMMARY | 2024-02-23 16:43 | XMS_ITS | Encounter Summary ---
Author Organization [facility] [place] [address] Care Team Providers Care Diesel Powerplant Supervisor Name Role Phone Pritesh Whittaker MD Primary Care Provider [phone] Reason for Visit * Reason Comments Medication Refill Encounter Details Date Type Department Care Team (Late st Contact Info) Description 04/24/2016 [place] [address] [address] [facility] [place] [address] Chronic migraine without aura without status migrainosus, [...] headache documented in this encounter Care Teams Diesel Powerplant Supervisor Relationship Specialty Start Date End Date Pritesh Whittaker MD [address] [place] [id number] PCP - General General Internal Medicine 11/12/15 documented as of this encounter
--- OUTSIDE RECORDS SUMMARY | 2024-02-23 16:43 | XMS_ITS | Encounter Summary ---
Author Organization [facility] [place] [address] Care Team Providers Care Marketing Analytics Manager Name Role Phone Pritesh Whittaker MD Primary Care Provider [phone] Encounter Details Date Type Department Care Team (Late st Contact Info) Description 03/18/2016 Notes Only [place] [address] Day Chakraborty APRN [facility] [place] [address] Social History Tobacco Use Types Packs/Day Years [...] as of this encounter Progress Notes * Day Sullivan APRN - 03/18/2016 10:03 AM EDT Patient discharged from speech therapy for lack of attendance. See Scan Doc. documented in this encounter Plan of Treatment Not on file documented as of this encounter Visit Diagnoses Not on filedocumented in this encounter Care Teams Marketing Analytics Manager Relationship Specialty Start Date End Date Pritesh Whittaker MD [address] [place] [id number] PCP - General General Internal Medicine 11/12/15 documented as of this encounter
--- OUTSIDE RECORDS SUMMARY | 2024-02-23 16:43 | XMS_ITS | Encounter Summary ---
Author Organization [facility] [place] [address] Care Team Providers Care Overlock Sleeve Setter Name Role Phone Pritesh Whittaker MD Primary Care Provider [phone] Reason for Visit * Reason Onset Date Comments Medication Refill 01/27/2016 Encounter Details Date Type Department Care Team (Late st Contact Info) Description 01/27/2016 [place] [phone] Pina Guillory MD [facility] [place] [address] Chronic migraine without aura without status migrainosus, [...] Telephone Encounter - Avtar Cassidy LPN - 01/27/2016 11:24 AM EDT Received e-fax request for prescription renewal for amitriptyline 100 mg. documented in this encounter Plan of Treatment Not on file documented as of this encounter Visit Diagnoses Diagnosis Chronic migraine without aura without status migrainosus, not intractable Chronic migraine without aura, without mention of intractable migraine without mention of status migrainosus Chronic post-traumatic headache, not intractable Chronic post-traumatic headache documented in this encounter Care Teams Overlock Sleeve Setter Relationship Specialty Start Date End Date Pritesh Whittaker MD [address] [address] PCP - General General Internal Medicine 11/12/15 documented as of this encounter
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
--- OUTSIDE RECORDS SUMMARY | 2024-02-23 16:43 | XMS_ITS | Encounter Summary ---
Author Organization [facility] [place] [address] Care Team Providers Care Electric Motor Winder Name Role Phone Amauri Chapa MD Primary Care Provider [phone] Reason for Referral * Consultation (Routine) - Closed Specialty Diagnoses / Procedures Referred By Contac t Referred To Contact Pain Management Diagnoses Low back pain, non-specific Chronic migraine without aura without status migrainosus, not intractable Chronic post-traumatic headache, not intractable Emil Ritchie MD [facility] [address] [facility] [address] [place] [address] Referral ID Status Reason Start Date Expiration Date V isits Requested Visits Authorized [id number] Closed Consult, Test & Treat 09/20/2015 09/19/2016 1 1 Reason for Visit * Reason Comments Migraine Injections Encounter Details Date Type Department Care Team (Late st Contact Info) Description 09/20/2015 11:00 AM EDT Office [place] [address] Emil Ritchie MD [facility] [address] Pina Guillory MD [facility] [address] Chronic migraine without aura without status migrainosus, not intractable; Chronic post-traumatic headache, not intractable; Low back pain, non-specific Social History Tobacco Use Types Packs/Day Years [...] Sign Reading Time Taken Comments Blood Pressure 110/76 09/20/2015 11:04 AM EDT Pulse 85 09/20/2015 11:04 AM EDT Temperature - - Respiratory Rate - - Oxygen Saturation - - Inhaled Oxygen Concentration - - Weight 114.3 kg (252 lb) 09/20/2015 11:04 AM EDT Height 162.6 cm (5' 4) 09/20/2015 11:04 AM EDT Body Mass Index 43.26 09/20/2015 11:04 AM EDT documented in this encounter Patient Instructions * Patient Instructions* Emil Ritchie MD - 09/20/2015 11:31 AM EDT ?[facility] Patient Instructions: Office Number: ([place]) ?? Clinic nurse number (for most issues) (Leighann) For Prescription Refills: ?? (Octavio) Please call for refills when you have one month left on your medication, we have 48 hours from the time you call to get the medication refill placed. Please call the clinic rather than using my-DH or e-mail, as the communication is better in real time. Thank you and I look forward to working with you. Book: [facility] (on ebay) Spring/ Davion/Phillip (editors) the 5th or 6th edition Diagnosis: Chronic post-traumatic headache, chronic migraine with and without aura - Keep your Calendar and bring them to your appointment please. - STOP these treatments: ?Continue to wean off of opioids Avoid tylenol and advil - For Headache Prevention: Increase amitriptyline to 100 mg at bedtime ?Remember that preventative medications usually take at least 4-6 weeks to be effective in reducing the frequency of your headaches. - For mild to moderate PHAN ?Diclofenac potassium 50 mg, take 1-2 tabs twice a day as needed ?Vistaril 25mg twice a day as needed - For severe PHAN ?Naratriptan 2.5 mg twice a day as needed, can repeat in 4 hours (max 5 mg in 24 hours) ?Take with Vistaril - For rescue ?? Phenergan 25mg-50mg suppository - Pain clinic for back pain As a reminder, the medications being prescribed can cause abnormal development and you should not get while on these medications. Given your history of migraine with aura, this places you at a 2 fold increased risk of stroke over an age matched population. Also estrogen increases the stroke risk 6 fold and smoking increased the risk 9 fold. ?http://tools.cardiosource.org/DXMUR-Hdws-Bqqaxyocn/ is a good tool for estimating stroke risk (x2 for you).? You have been provided with a S Toolbox handout on the topic. ?? I recommend that your primary care physician evaluates your stroke risk factors including Lipids,HbA1C and Blood Pressure. Follow-up in 3 months. documented in this encounter Procedure Notes * Emil Ritchie MD - 09/20/2015 12:40 PM EDTProcedure(s): NERVE BLOCK - OCCIPITAL S: Headaches down to 2 per week, about 3-4 per month are severe. ONBs usually give headache freedomfor 2-3 weeks. She takes vistaril over cataflam. Vistaril can abort a milder headache 9 out of 10 times. Naratriptan aborts her severe headaches. She is off MS contin. Taking oxycodone 3-4 days per week, after PT sessions, for back pain. She is taking tylenol or advil almost daily for back pain. A/P: ONBs today Increase amitriptyline to 100 mg nightly She is in episodic migraine pattern and will not pursue botox at this time Pain clinic referral for non-opioid, possibly topical therapies for back pain F/u in 3 months Procedure Note Procedure: Bilateral Greater Occipital Nerve Blocks Indication: Headache with occipital/cervical tenderness Consent: Indication, risks, benefits, and alternatives discussed with patient, including risk of bleeding, infection, permanent numbness, and medication reaction. Verbal consent was obtained. Location: A time-out was conducted just before the start of the procedure to verify the correct patient and procedure, procedure location, and all relevant critical information. The greater occipitalnerve was located by first palpating the mastoid and midline occipital ridge. The nerve was palpated at 2/3 the distance to the occipital ridge. It was coincident with maximal tenderness. Medication: 50/50 mixture of 1% lidocaine and 0.25% bupivacaine Technique: The area was prepared with 70% isopropyl alcohol (No Betadine) using exam gloves. Using a 3 cc syringe and a 25 guage 5/8 inch needle, 3 cc of the local anesthetic (1.5 cc of 1% lidocaine with 1.5 cc of 0.25% bupivacaine) was infiltrated around the greater occipital nerve on each side. Prior to each injection the plunger was drawn back to ensure that the needle was not in a blood vessel. The patient tolerated the procedure well. Complications: None Blood loss: <1 cc Emil Ritchie MD Headache Fellow [facility] Neurology documented in this encounter Plan of Treatment Scheduled Referrals Name Type Priority Associated Diagnoses Orde r Schedule Referral to Pain Clinic Outpatient Referral Routine Low back pain, non-specific Chronic migraine without aura without status migrainosus, not intractable Chronic post-traumatic headache, not intractable Ordered: 09/20/2015 documented as of this encounter Visit Diagnoses Diagnosis Chronic migraine without aura without status migrainosus, not intractable Chronic migraine without aura, without mention of intractable migraine without mention of status migrainosus Chronic post-traumatic headache, not intractable Chronic post-traumatic headache Low back pain, non-specific documented in this encounter Administered Medications Inactive Administered Medications - up to 3 most recent administrations Medication Order MAR Action Action Date Dose Rate Site BUpivacaine (PF) (MARCAINE) 0.25 % (2.5 mg/mL) injection 7.5 mg 7.5 mg, Subcutaneous, ONCE, 1 dose, On Wed09/20/15 at 1300, Routine Given 09/20/2015 12:48 PM EDT 7.5 mg 20-Other (document in comment section) lidocaine (XYLOCAINE) 10 mg/mL (1 %) injection 30 mg 30 mg (3 mL), Subcutaneous, ONCE, 1 dose, On Wed09/20/15 at 1300, Routine Given 09/20/2015 12:49 PM EDT 30 mg 20-Other (document in comment section) documented in this encounter Care Teams Electric Motor Winder Relationship Specialty Start Date End Date Amauri Chapa MD [address] [place] [address] [place] [address] PCP - General 04/22/10 11/11/15 documented as of this encounter
--- OUTSIDE RECORDS SUMMARY | 2024-02-23 16:43 | XMS_ITS | Encounter Summary ---
Author Organization [facility] [place] [address] Care Team Providers Care Line Helper Name Role Phone Pritesh Whittaker MD Primary Care Provider [phone] Reason for Visit * Reason Onset Date Comments Labs Only 03/16/2016 Encounter Details Date Type Department Care Team ([facility] st Contact Info) Description 03/16/2016 Telephone [place] [id number] Katie Valerio APRN [facility] [place] [address] Labs Only Social History Tobacco Use Types Packs/Day Years [...] encounter Miscellaneous Notes * Telephone Encounter - Yohana Chris RN - 03/17/2016 10:47 AM EDT Faxed labs to Dr. Whittaker's office * Telephone Encounter - Katie Valerio APRN - 03/16/2016 5:16 PM EDT Please forward and call labs to PCP office. Evidently, PCP has been following her care for liver disease. It is unclear to me what the plan is however. JAB * Telephone Encounter - Yohana Chris RN - 03/16/2016 3:55 PM EDT Images from the original note were not included. documented in this encounter Plan of Treatment Not on file documented as of this encounter Visit Diagnoses Not on filedocumented in this encounter Care Teams Line Helper Relationship Specialty Start Date End Date Pritesh Whittaker MD [address] [place] [id number] PCP - General General Internal Medicine 11/12/15 documented as of this encounter
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
--- OUTSIDE RECORDS SUMMARY | 2024-02-23 16:43 | XMS_ITS | Encounter Summary ---
[place] [address] Care Team Providers Care Cable Engineer Outside Plant Name Role Phone Pritesh Whittaker MD Primary Care Provider [phone] Encounter Details Date Type Department Care Team (Latest Contact Info) Description 02/24/2016 11:15 AM EDT - 02/24/2016 11:59 PM EDT Hospital Encounter [place] [id number] Discharge Disposition: Home Social History Tobacco Use [...] 4 times daily. 240 g 3 10/18/2015 cyclobenzaprine (FLEXERIL) 5 mg Tablet Take 0.5 [...] 1 tablet by mouth nightly. 30 tablet 1 01/27/2016 03/31/2016 lamoTRIgine (LAMICTAL) 25 mg Tablet Take 1-2 tablets by mouth 2 times daily. For first 2 weeks take 25mg (1 tablet) twice daily. Week 3 take 2 pills (50mg) in the morning and 1 pill (25mg) at night. Week 4 take 50mg (2 pills) daily. 60 tablet 3 04/06/2015 03/02/2016 documented as of this encounter Plan of Treatment Not on file documented as of this encounter Visit Diagnoses Not on filedocumented in this encounter Care Teams Cable Engineer Outside Plant Relationship Specialty Start Date End Date Pritesh Whittaker MD [address] [place] [id number] PCP - General General Internal Medicine 11/12/15 documented as of this encounter
--- OUTSIDE RECORDS SUMMARY | 2024-02-23 16:43 | XMS_ITS | Encounter Summary ---
[place] [address] Care Team Providers Care Napper Runner Name Role Phone Amauri Chapa MD Primary Care Provider [phone] Reason for Visit * Reason Onset Date Comments Other 07/25/[address] issue Encounter Details Date Type Department Care Team (Late st Contact Info) Description 07/25/2015 [place] [phone] Emil Ritchie MD [facility] [place] [address] Other (DHE injection cost issue) Social History Tobacco Use Types Packs/Day Years [...] Telephone Encounter - Yohana Chris RN - 07/29/2015 10:28 AM EST Called patient and informed her of Dr. Ritchie's recommendation as noted. Patient understands instructions and agrees with this plan. I let her know that if her insurance will not cover this to call the office right away so we can work on a prior authorization. I also let her know that she can use [facility] until the PA is completed if that is the case. Debbie Garcia - 07/25/2015 9:00 AM ?? Emil Ritchie MD ?? Sent: WedJuly 26, 2015 ??1:59 PM ? To: Yohana Chris RN ? Message ? Please prep a script for naratriptan 2.5 mg bid prn for severe headaches, #9, limit 2 days per week. This will prob be too expensive for her too. * Telephone Encounter - Yohana Chris RN - 07/29/2015 10:23 AM EST Patient called and left a message on the triage line that she is returning my call from Wednesday and can be reached at [phone]. * Telephone Encounter - Yohana Chris RN - 07/26/2015 2:38 PM EST Called patient and left a message asking for a return phone call to discuss naratriptan Rx. * Telephone Encounter - Yohana Chris RN - 07/25/2015 9:47 AM EST Patient called and left a message on the triage line that she is following up about her ONBs from yesterday and can be reached at [phone]. * Telephone Encounter - Yohana Chris RN - 07/25/2015 9:00 AM EST Patient called in today asking for an alternative medication to DHE due to the cost of the medication. I called her pharmacy and the mediation will cost her $197 for eight ampules as her co-pay and the insurance will pay $1600 of the Rx. Patient told the pharmacist that she cannot afford the $197 co-pay. documented in this encounter Plan of Treatment Not on file documented as of this encounter Visit Diagnoses Diagnosis Headache(784.0) Headache documented in this encounter Care Teams Napper Runner Relationship Specialty Start Date End Date Aamuri Chapa MD [address] [place] [address] [place] [address] PCP - General 04/22/10 11/11/15 documented as of this encounter
--- OUTSIDE RECORDS SUMMARY | 2024-02-23 16:43 | XMS_ITS | Encounter Summary ---
Author Organization [facility] Address [facility] [place] [address] Care Team Providers Care Mold Checker Name Role Phone Amauri Chapa MD Primary Care Provider [phone] Encounter Details Date Type Department Care Team (Latest Contact Info) Description 07/10/2015 10:23 AM [facility] Hospital Encounter XRay at [address] [place] [address] Yudi Mason MD [facility] [place] [address] Lumbar burst fracture, with routine healing, subsequent [...] Sig Dispensed Refills Start Date End Date mirtazapine (REMERON) 15 mg Tablet Take 15 [...] needed (rescue for headache, nausea). 60 suppository 06/12/2015 multivitamin (THERAGRAN) Tablet Take 1 tablet [...] 325 mg by mouth 2 times daily. dihydroergotamine (MIGRANAL) 0.5 mg/pump act. (4 mg/mL) [place], Non-AerosolIndicat ions:Acute post-traumatic headache, not intractable,Migrai ne with aura and without status migrainosus, not intractable Use one spray in each nostril, wait 15 minutes, then repeat. For severe headache 8 mL 12 06/12/2015 07/24/2015 amitriptyline (ELAVIL) 25 mg TabletIndications: Acute post-traumatic headache, not intractable,Migrai ne with aura and without status migrainosus, not intractable Take 2 tablets by mouth nightly. 60 tablet 3 06/12/2015 07/24/2015 gabapentin (NEURONTIN) 600 mg Tablet Take 1 [...] LUMBAR SPINE 2 OR 3 VIEWS Routine 07/10/2015 10:41 AM EST Lumbar burst fracture, with routine [...] y/o owman s/p traumatic L1 burst fx [id number] posterior fusion for stabilization on 04/03/15. Recheck [...] encounter documented in this encounter Care Teams Mold Checker Relationship Specialty Start Date End Date Amauri Chapa MD [address] [place] [address] [place] [address] PCP - General 04/22/10 11/11/15 documented as of this encounter
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
--- OUTSIDE RECORDS SUMMARY | 2024-02-23 16:43 | XMS_ITS | Encounter Summary ---
Author Organization [facility] [place] [address] Care Team Providers Care Official Court Interpreter Name Role Phone Amauri Chapa MD Primary Care Provider [phone] Reason for Visit * Reason Onset Date Comments Medication Refill 09/24/2015 Encounter Details Date Type Department Care Team (Late st Contact Info) Description 09/24/2015 [place] [id number] Jo Domingo APRN [facility] [place] [address] Lumbar burst fracture, with routine healing, subsequent [...] encounter Miscellaneous Notes * Telephone Encounter - Jo Domingo APRN - 09/24/2015 3:31 PM EDTFrom: Debbie Garcia To: Jo Domingo APRN Sent: 09/24/2015 3:02 PM EDT Subject: Medication Renewal Request Original authorizing provider: CONNOR ZHU would like a refill of the following medications: gabapentin (NEURONTIN) 600 mg Tablet [JO DOMINGO APRN] Preferred pharmacy: [id number] - [place], [place] - [address] Comment: I need a refill on my Gabapentin 600mg documented in this encounter Plan of Treatment Not on file documented as of this encounter Visit Diagnoses Diagnosis Lumbar burst fracture, with routine healing, subsequent encounter documented in this encounter Care Teams Official Court Interpreter Relationship Specialty Start Date End Date Amauri Chapa MD [address] [place] [address] [place] [address] PCP - General 04/22/10 11/11/15 documented as of this encounter
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
--- OUTSIDE RECORDS SUMMARY | 2024-02-23 16:43 | XMS_ITS | Encounter Summary ---
Author Organization [facility] [address] Care Team Providers Care Crew Member Name Role Phone Amauri Chapa MD Primary Care Provider [phone] Reason for Visit * Reason Onset Date Comments Prior Authorization 09/23/2015 prior author ization naratriptan Encounter Details Date Type Department Care Team ([facility] st Contact Info) Description 09/23/2015 Telephone [place] [id number] Emil Ritchie MD [facility] [place] [address] Prior Authorization (prior authorization naratriptan) Social History Tobacco Use Types Packs/Day Years [...] Telephone Encounter - Avtar Cassidy LPN - 10/02/2015 10:54 AM EDT Spoke to commercial lines insurance agent, and no prior authorization is needed. Patient can receive #. Living Supervisor stated that pharmacist needs to reprocess claim with today's date. I informed pharmacist and he verbalized understanding. * Telephone Encounter - Avtar Cassidy LPN - 09/27/2015 1:50 PM EDT PA sent to insurance for naratriptan 2.5 mg #18/30 via cover my meds. * Telephone Encounter - Yohana Chris RN - 09/23/2015 2:04 PM EDT prior authorization naratriptan #18/30 needed * Telephone Encounter - Yohana Chris RN - 09/23/2015 1:25 PM EDT Rx prepped for Dr. Ritchie's approval. Debbie Garcia Mykel - 09/23/2015 8:34 AM ?? Emil Ritchie MD ?? Sent: WedSeptember 23, 2015 12:30 PM ? To: Yohana Chris RN ? Message ? We can try to get her Naratriptan 2.5 mg bid prn, #18, limit to 2 days per week max ? Rich * Telephone Encounter - Yohana Chris RN - 09/23/2015 8:34 AM EDT Patient e-mailed requesting an increase in the amount of naratriptan she received in one month. I let her know I would check with Dr. Ritchie to see how many he is wanting her to have in one month. documented in this encounter Plan of Treatment Not on file documented as of this encounter Visit Diagnoses Not on filedocumented in this encounter Care Teams Crew Member Relationship Specialty Start Date End Date Amauri Chapa MD [address] [place] [address] [place] [address] PCP - General 04/22/10 11/11/15 documented as of this encounter
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
--- OUTSIDE RECORDS SUMMARY | 2024-02-23 16:43 | XMS_ITS | Encounter Summary ---
Author Organization [facility] [place] [address] Care Team Providers Care Lead Pony Rider Name Role Phone Pritesh Whittaker MD Primary Care Provider [phone] Reason for Visit * Reason Onset Date Comments Results 02/26/2016 Encounter Details Date Type Department Care Team (Late st Contact Info) Description 02/26/2016 [place] [phone] Katie Valerio APRN [facility] [place] [address] Results Social History Tobacco Use Types Packs/Day Years [...] encounter Miscellaneous Notes * Telephone Encounter - Judit Alonso RN - 02/26/2016 12:09 PM EDT Called patient to inform her as noted regarding her lab results. She tells me that she has liver disease and that her number have been good. She will have the test repeated and asked that I send the order to [facility] in [facility], I will do this, I will also forward these results to her PCP at her request. * Telephone Encounter - Katie Valerio APRN - 02/26/2016 10:41 AM EDT EKG - Normal Labs - abnormal Alk phos and elevated LFT (possible liver concern) P: 1. Avoid Tylenol and ETOH 2. Repeat labs in 2 weeks. 3. Lab order has been placed in [facility]. documented in this encounter Plan of Treatment Not on file documented as of this encounter Visit Diagnoses Diagnosis Abnormal laboratory test result Other abnormal clinical finding documented in this encounter Care Teams Lead Pony Rider Relationship Specialty Start Date End Date Pritesh Whittaker MD [address] [place] [id number] PCP - General General Internal Medicine 11/12/15 documented as of this encounter
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
--- OUTSIDE RECORDS SUMMARY | 2024-02-23 16:43 | XMS_ITS | Encounter Summary ---
Author Organization [facility] [place] [address] Care Team Providers Care Temporary Help Agency Referral Clerk Name Role Phone Amauri Chapa MD Primary Care Provider Encounter Details Date Type Department Care Team (Late st Contact Info) Description 08/08/2015 Orders Only Neurosurgery at [facility] [address] Day Chakraborty APRN [facility] [place] [address] Social History Tobacco Use Types Packs/Day Years [...] Progress Notes * Day Sullivan APRN - 08/09/2015 9:27 AM EST Request received from patient's pharmacy (via e-fax) for refill of MS Contin and oxycodone. Called pharmacy and determined that pain medication has been filled by her PCP, Dr. Whittaker. Will defer to Dr. Whittaker for ongoing refills as appropriate. documented in this encounter Plan of Treatment Not on file documented as of this encounter Visit Diagnoses Not on filedocumented in this encounter Care Teams Temporary Help Agency Referral Clerk Relationship Specialty Start Date End Date Amauri Chapa MD [address] [place] [address] [place] [address] PCP - General 04/22/10 11/11/15 documented as of this encounter
--- OUTSIDE RECORDS SUMMARY | 2024-02-23 16:43 | XMS_ITS | Encounter Summary ---
[place] [address] Care Team Providers Care Supervisor Leaf Spring Repair Name Role Phone Amauri Chapa MD Primary Care Provider [phone] Reason for Referral * Diagnostic Test (Routine) - Closed Specialty Diagnoses / Procedures Referred By Contac t Referred To Contact Radiology Diagnoses Lumbar burst fracture, with routine healing, subsequent encounter Procedures CT Lumbar Spine Wo Contrast (GENERIC) Jo Abel APRN [facility] [address] [place] [address] [facility] [place] [address] Referral ID Status Reason Start Date Expiration Date V isits Requested Visits Authorized [id number] Closed Specialty Service Requested 09/25/2015 11/23/2015 1 1 Reason for Visit * Diagnostic Test (Routine) - Closed Specialty Diagnoses / Procedures Referred By Contac t Referred To Contact Radiology Diagnoses Lumbar burst fracture, with routine healing, subsequent encounter Procedures CT Lumbar Spine Wo Contrast (GENERIC) Jo Abel DECK OFFICER [facility] [place] [address] [facility] [place] [address] Referral ID Status Reason Start Date Expiration Date V isits Requested Visits Authorized [id number] Closed Specialty Service Requested 09/25/2015 11/23/2015 1 1 Encounter Details Date Type Department Care Team (Latest Contact Info) Description 10/09/2015 10:04 AM EDT - 10/09/2015 11:59 PM EDT Hospital [place] [id number] Yudi Mason MD [facility] [place] [address] Lumbar burst fracture, with routine healing, subsequent [...] Sig Dispensed Refills Start Date End Date cyclobenzaprine (FLEXERIL) 5 mg Tablet Take 0.5 [...] tablet by mouth nightly. 30 tablet 3 09/20/2015 01/27/2016 lamoTRIgine (LAMICTAL) 25 mg Tablet Take 1-2 [...] Procedure Name Priority Date/Time Associated Diagnosis Comments CT LUMBAR SPINE WWO CONTRAST Routine 10/09/2015 10:35 AM EDT Lumbar burst fracture, with routine healing, subsequent encounter documented in this encounter Results * CT Lumbar Spine [...] traumatic L1 burst fx s/p T11 to [id number] stabilization & fusion on 04/03/15. Recheck alignment, fx site forchanges and osseous fusion, change in instrumentation, new abnormals. TECHNIQUE: CT of the lumbar spine performed without the use ofintravenous contrast. COMPARISON: Plain films 07/10/2015, CT 03/31/2015 FINDINGS: Bilateral pedicle screw and christopher fixation extends from [id number] L3, with pedicle screws at T11, T12, [...] encounter documented in this encounter Care Teams Supervisor Leaf Spring Repair Relationship Specialty Start Date End Date Amauri Chapa MD [address] [place] [address] [place] [address] PCP - General 04/22/10 11/11/15 documented as of this encounter
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
--- OUTSIDE RECORDS SUMMARY | 2024-02-23 16:43 | XMS_ITS | Encounter Summary ---
Author Organization [facility] [place] [address] Care Team Providers Care Veneer Layer Name Role Phone Amauri Chapa MD Primary Care Provider [phone] Reason for Visit * Reason Comments Migraine Encounter Details Date Type Department Care Team ([facility] st Contact Info) Description 07/24/2015 1:00 PM EST Office [place] [address] Sidney Tafoya MD [facility] [place] [address] Emil Ritchie MD [facility] [place] [address] Intractable chronic post-traumatic headache; Chronic migraine without aura without status migrainosus, not intractable; Medication overuse headache; Acute post-traumatic headache, not intractable; Migraine with [...] Sign Reading Time Taken Comments Blood Pressure 137/71 07/24/2015 12:50 PM EST Pulse 79 07/24/2015 12:50 PM EST Temperature - - Respiratory Rate - - Oxygen Saturation - - Inhaled Oxygen Concentration - - Weight 113.9 kg (251 lb) 07/24/2015 12:50 PM EST Height 162.6 cm (5' 4) 07/24/2015 12:50 PM EST Body Mass Index 43.08 07/24/2015 12:50 PM EST documented in this encounter Patient Instructions * Patient Instructions* Emil Ritchie MD - 07/24/2015 1:49 PM EST ?[facility] Patient Instructions: Office Number: ([place]) ?? Clinic nurse number (for most issues) [...] or 6th edition Diagnosis: Chronic post-traumatic headache, migraine with and without aura - Keep your Calendar and bring them to your appointment please. - STOP these treatments: Migranal nasal spray ?Continue to wean off of opioids - For Headache Prevention: Increase amitriptyline to 75 mg at bedtime Will request Botox ?Remember that preventative medications usually take at least 4-6 weeks to be effective in reducing the frequency of your headaches. - For mild to moderate PHAN ?Diclofenac potassium 50 mg, take 1-2 tabs twice a day as needed ?Vistaril 25mg twice a day as needed - For severe PHAN ?DHE 1 mg injection Medication comes in an ampule Break the ampule and draw up the medication with the filter needle Change out the needle Prepare the skin on your lateral thigh - clean it off with an alcohol swab Place the needle in th skin Gently draw back on the syringe to ensure you are not in a blood vessel Inject the medication You can repeat the process in 1 hour in the opposite thigh if the headache has not resolved or is not significantly better Limit 2 days per week Take with Vistaril - For rescue ?? Phenergan 25mg-50mg suppository - You had bilateral occipital nerve blocks performed today Please call Keely at Tomorrow and on Wednesday to discuss the medication effect ?? If you get the voicemail, Please leave your name, and state that you received nerve blocks Please let us know if the nerve blocks are improving your headaches Note any side effects and let us know if you require a call back ?? Thank you As a reminder, the medications being prescribed can cause abnormal development and you should not get while on these medications. Given your history of migraine with aura, this places you at a 2 fold increased risk of stroke over an age matched population. Also estrogen increases the stroke risk 6 fold and smoking increased the risk 9 fold. ?http://tools.cardiosource.org/VTTTC-Fpws-Zmlhuncla/ is a good tool for estimating stroke risk (x2 for you).?? You have been provided with a S Toolbox handout on the topic. I recommend that your primary care physician evaluates your stroke risk factors including Lipids,HbA1C and Blood Pressure. Follow-up with Dr. Ritchie in 6 weeks. documented in this encounter Progress Notes * Emil Ritchie MD - 07/24/2015 2:37 PM EST Neurology Headache Clinic Follow-up Patient Name: Debbie Garcia Attending: Dr. Tafoya Patient ID: Debbie Garcia is a 40 y.o. F with a history of depression, bipolar disorder, asthma, fatty liver, PTSD, postconcussive syndrome, h/o migraine, now with acute headache attributed to mild traumaticinjury to the head with migraine with and without aura phenotype, medication overuse headache. Interval History: ONBs lasted about 2 weeks. She had 8 days without headache, then mild headaches the next 5-6 days, then severe headaches started coming back. She has been tapering down on the ms contin first, then will taper off the oxycodone. She has noticed her headaches worsened some during this taper. Severe headaches 2-3 times per week now. cataflam and vistaril can abort some of her mild-mod headaches, migranal can abort some of her severe headaches. She is having a hard time not sniffing the migranal, which she then swallows. Aura: black spots in her vision with severe headaches that last about 5-10 minutes Current Medications: Amitriptyline 25 mg daily at bedtime Diclofenac potassium Vistaril Migranal Phenergan suppository MS contin 1 per day - tapering off Oxycodone daily - will taper off Medications tried: ?? Anaprox Naprosyn 500 mg Tylenol extra strength Aleve 880 mg Advil 800 mg Contraception: tubal ligation, IUD Previous work-up: CT [...] spine. ?5. Multilevel mid thoracic degenerative changes. Medications: Current Outpatient Prescriptions on File Prior to Visit Medication Sig Dispense Refill ??? diclofenac (CATAFLAM) [...] for headache, nausea). 60 suppository 11 ??? gabapentin (NEURONTIN) 600 mg Tablet Take [...] facility-administered medications on file prior to visit. Physical Exam: Filed Vitals: 07/24/15 1250 BP: 137/71 Pulse: 79 Constitutional: Patient of apparent stated age, no acute distress HEENT: b/l greater occipital nerve tenderness CV: RRR, S1, S2, no murmur Resp: CTAB Neuro: MS: Alert, oriented, clear language, no dysarthria, follows commands CN: PERRL, EOMI, no facial asymmetry, tongue is midline Fundoscopic exam: optic disc margins crisp, positive spontaneous venous pulsations, no AV nicking appreciated Motor: no pronator drift 5/5 strength throughout Reflexes: 2/4 throughout Coordination: intact finger to nose and TEJAL Gait: normal base and arm swing, Romberg negative Labs: No results found for this or any previous visit (from the past 24 hour(s)). Diagnostic Tests and Imaging: As above Assessment and Plan: Debbie Garcia is a 40 y.o. F with a history of depression, bipolar disorder, asthma, fatty liver, PTSD, postconcussive syndrome, h/o migraine, now with acute headache attributed to mild traumaticinjury to the head with migraine with and without aura phenotype, medication overuse headache. ONBs lasted about 2 weeks and will repeat today. Will increase amitriptyline to 75 mg qhs. Will request botox in the meantime in case the increased amitriptyline does not work. She is swallowing too much of the migranal nasal spray and will switch to DHE injections instead. She will be provided with DHE injection education by nursing today. - Headache diary - STOP these treatments: Migranal nasal spray ?Continue to wean off of opioids - For Headache Prevention: Increase amitriptyline to 75 mg at bedtime Will request Botox ?Remember that preventative medications usually take at least 4-6 weeks to be effective in reducing the frequency of your headaches. - For mild to moderate PHAN ?Diclofenac potassium 50 mg, take 1-2 tabs twice a day as needed ?Vistaril 25mg twice a day as needed - For severe PHAN ?DHE 1 mg injection Medication comes in an ampule Break the ampule and draw up the medication with the filter needle Change out the needle Prepare the skin on your lateral thigh - clean it off with an alcohol swab Place the needle in th skin Gently draw back on the syringe to ensure you are not in a blood vessel Inject the medication You can repeat the process in 1 hour in the opposite thigh if the headache has not resolved or is not significantly better Limit 2 days per week Take with Vistaril - For rescue ?? Phenergan 25mg-50mg suppository - Given her history of migraine with aura, this places her at a 2 fold increased risk of stroke over an age matched population. Also estrogen increases the stroke risk 6 fold and smoking increased the risk 9 fold. http://tools.cardiosource.org/RAELR-Lpxo-Dnbbykobt/ is a good tool for estimating stroke risk (x2 for this patient). -I recommend that her primary care physician evaluates her stroke risk factors including Lipids, HbA1C and Blood Pressure. Return to clinic in 6 weeks. Patient seen and discussed with attending, Dr. Tafoya. Emil Ritchie MD Headache Fellow [facility] Neurology documented in this encounter Procedure Notes * Emil Ritchie MD - 07/24/2015 2:36 PM ESTProcedure(s): NERVE BLOCK - OCCIPITAL Procedure Note Procedure: Bilateral Greater Occipital Nerve [...] as of this encounter Visit Diagnoses Diagnosis Intractable chronic post-traumatic headache Chronic post-traumatic headache Chronic migraine without aura without status migrainosus, not intractable Chronic migraine without aura, without mention of intractable migraine without mention of status migrainosus Medication overuse headache Drug induced headache, not elsewhere classified Acute post-traumatic headache, not intractable Acute post-traumatic [...] 7.5 mg, Subcutaneous, ONCE, 1 dose, On Wed07/24/15 at 1415, Routine Given 07/24/2015 2:44 PM EST 7.5 mg 20-Other (document in comment section) lidocaine (XYLOCAINE) 10 mg/mL (1 %) injection 30 mg 30 mg (3 mL), Subcutaneous, ONCE, 1 dose, On Wed07/24/15 at 1415, Routine Given 07/24/2015 2:44 PM EST 30 mg 20-Other (document in comment section) documented in this encounter Care Teams Veneer Layer Relationship Specialty Start Date End Date Amauri Chapa MD [address] [place] [address] [place] [address] PCP - General 04/22/10 11/11/15 documented as of this encounter
--- OUTSIDE RECORDS SUMMARY | 2024-02-23 16:43 | XMS_ITS | Encounter Summary ---
Author Organization [facility] [place] [address] Care Team Providers Care Tenter Frame Back Tender Name Role Phone Pritesh Whittaker MD Primary Care Provider [phone] Encounter Details Date Type Department Care Team (Late st Contact Info) Description 04/24/2016 [place] [phone] Katie Valerio APRN [facility] [place] [address] Social History Tobacco Use Types Packs/Day Years [...] Telephone Encounter - Rachel Márquez RN - 04/24/2016 9:31 AM EST Called PCP's office and spoke with triage nurse giving Katie Valerio's response to Dr. Whittaker's letter. * Telephone Encounter - Rachel Márquez RN - 04/24/2016 9:31 AM EST ----- Message from Judit Alonso RN sent at 04/20/2016 1:16 PM EST ----- Regarding: FW: letter from PCP ----- Message ----- From: Katie Valerio APRN Sent: 04/20/2016 1:10 PM To: Judit Alonso RN Subject: FW: letter from PCP Please inform PCP that I do not see any evidence of true seizure activity noted in patient's chart. I agree with his note. Migraine does not preclude patient from driving. OLIVA Lyons ----- Message ----- From: Rachel Márquez RN Sent: 04/13/2016 11:04 AM To: Katie Valerio APRN Subject: letter from PCP Katie, This patient's PCP sent a letter requesting your opinion regarding his plan for this patient I haveplaced a copy in your mailbox and it is also available in scanned documents. I am also going to call the provider and let him know that you are out of the office until 04/20. Serena. Rachel documented in this encounter Plan of Treatment Not on file documented as of this encounter Visit Diagnoses Not on filedocumented in this encounter Care Teams Tenter Frame Back Tender Relationship Specialty Start Date End Date Pritesh Whittaker MD [address] [address] PCP - General General Internal Medicine 11/12/15 documented as of this encounter
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
--- OUTSIDE RECORDS SUMMARY | 2024-02-23 16:43 | XMS_ITS | Encounter Summary ---
[place] [address] Care Team Providers Care Hand Straightener Name Role Phone Pritesh Whittaker MD Primary Care Provider [phone] Encounter Details Date Type Department Care Team (Late st Contact Info) Description 03/04/2016 Orders [place] [phone] Bernadette Manzo RN Social History Tobacco Use Types Packs/Day Years [...] on filedocumented in this encounter Care Teams Hand Straightener Relationship Specialty Start Date End Date Pritesh Whittaker MD [address] [place] [address] PCP - General General Internal Medicine 11/12/15 documented as of this encounter
--- OUTSIDE RECORDS SUMMARY | 2024-02-23 16:44 | XMS_ITS | Encounter Summary ---
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 Discontinued, To neck rash 1013 (Given - Provider: Kleber Fournier RN)2100 (Given - Provider: Mounika Preciado RN) 08 (Given - Provider: Emil Ross RN)2121 (Given - Provider: Mounika Preciado RN) 0829 (Given - Provider: Rachel Rodríguez, PRIMO) lamoTRIgine (LaMICtal) tablet 25 mg 25 mg, Oral, 2 TIMES DAILY, First dose on Wed04/04/15 at 1800, Until Discontinued, Routine 1730 (Given - Provider: Kleber Fournier RN) 0834 (Given - Provider: Emil Ross RN)2116 (Given - Provider: Mounika Preciado RN) 08 (Given - Provider: Rachel Rodríguez RN) lidocaine (XYLOCAINE) 10 mg/mL (1 %) injection 5 mg (COMPLETED) 5 mg, Subcutaneous, ONCE, 1 dose, On Wed04/05/15 at 0830, Routine 1013 (Given - Provider: Emil Ross RN) polyethylene glycol (MIRALAX) packet 17 g (CANCELED) 17 g, Oral, DAILY, First dose (after last modification) on Wed04/03/15 at 0900, Until Discontinued, Administer if needed per patient's routine or if no bowel movement within 48 hours to achieve: 1) One bowel movement at least every 48 hours, AND 2) Without straining. If multiple bowel medications ordered, consider polyethylene glycol(MIRALAX) first., Routine 0916 (Given - Provider: Kleber Fournier RN) 0829 (Given - Provider: Emil Ross RN) 0827 (Given - Provider: Rachel Rodríguez, PRIMO) senna-docusate (PERICOLACE) 8.6-50 mg per tablet 2 tablet (CANCELED) 2 tablet, Oral, 2 TIMES DAILY, First dose on Wed04/01/15 at 0915, Until Discontinued, Routine 0916 (Given - Provider: Kleber Fournier RN)2100 (Not Given - Provider: Mounika Preciado RN - Reason: Patient/family refused) 0835 (Given - Provider: Emil Ross RN)2127 (Given - Provider: Mounika Preciado RN) 0828 (Given - Provider: Rachel Rodríguez, PRIMO) Continuous Medication Order 04/04/2015 04/05/2015 04/06/2015 dextrose 5% and sodium chloride 0.45% with potassium chloride 20 mEq infusion (CANCELED) 100 mL/hr, Intravenous, CONTINUOUS, Starting on Wed04/01/15 at 1315, Until Wed04/05/15 at 0803 2058 (New Bag - Provider: Mounika Preciado RN) PRN Medication Order 04/04/2015 04/05/2015 04/06/2015 albuterol (PROVENTIL) nebulizer solution 2.5 mg (CANCELED) 2.5 mg, Nebulization, EVERY 6 HOURS PRN, Starting on Wed04/05/15 at 0815, Until 04/06/15 at 2022, Wheezing, Routine 0828 (Given - Provider: Emil Ross RN) oxyCODONE (ROXICODONE) immediate release tablet 10 mg (CANCELED)(Linked Group 2) 10 mg, Oral, EVERY 3 HOURS PRN, Starting on Wed04/05/15 at 0802, Until 04/06/15 at 2022, Pain, moderate pain (4-6), May give additional 5 mg in 30 minutes once if pain not relieved., Routine 1057 (See Alternative - Provider: Emil Ross RN)1632 (Given - Provider: Emil Ross RN)2120 (See Alternative - Provider: Mounika Preciado RN) 010 (See Alternative - Provider: Mounika Preciado RN)0702 (See Alternative - Provider: Mounika Preciado RN)1115 (See Alternative - Provider: Rachel Rodríguez RN)1546 (See Alternative - Provider: Rachel Rodríguez RN)1817 (See Alternative - Provider: Rachel Rodríguez RN) oxyCODONE (ROXICODONE) immediate release tablet 15 mg (CANCELED)(Linked Group 2) 15 mg, Oral, EVERY 3 HOURS PRN, Starting on Wed04/05/15 at 0802, Until 04/06/15 at 2022, Pain, severe pain or opiate tolerant patient (7-10), Do not start patient with 15 mg dose. Do not give 15 mg if patient is opiate niave., Routine 1057 (Given - Provider: Emil Ross RN)163 (See Alternative - Provider: Emil Ross RN)2120 (Given - Provider: Mounika Preciado RN) 010 (Given - Provider: Mounika Preciado RN)0702 (Given - Provider: Mounika Preciado RN)1115 (Given - Provider: Rachel Rodríguez RN)154 (See Alternative - Provider: Rachel Rodríguez RN)181 (Given - Provider: Rachel Rodríguez RN) oxyCODONE (ROXICODONE) immediate release tablet 5 mg(Linked Group 2) 5 mg, Oral, EVERY 3 HOURS PRN, Starting on Wed04/05/15 at 0802, Until 04/06/15 at 2022, Pain, mild pain (1-3), May give additional 5 mg in 30 minutes once if pain not relieved., Routine 1057 (See Alternative - Provider: Emil Ross RN)1632 (See Alternative - Provider: Emil Ross RN)2120 (See Alternative - Provider: Mounika Preciado RN) 0101 (See Alternative - Provider: Mounika rPeciado RN)0702 (See Alternative - Provider: Mounika Preciado RN)1115 (See Alternative - Provider: Rachel Rodríguez RN)1546 (Given - Provider: Rachel Rodríguez RN)1817 (See Alternative - Provider: Rachel Rodríguez RN) oxyCODONE (ROXICODONE) immediate release tablet 5-10 mg (CANCELED) 5-10 mg, Oral, EVERY 4 HOURS PRN, Starting on Kathleen 04/04/15 at 1141, Until 04/05/15 at 0803, Pain, 5mg for pain scale 3-5, 10mg for pain scale 6-10, Routine 1312 (Given - Provider: Kleber Fournier RN)1646 (Given - Provider: Kleber Fournier RN)2052 (Given - Provider: Mounika Preciado RN) 0134 (Given - Provider: Mounika Preciado RN)0604 (Given - Provider: Mounika Preciado RN) Linked Groups Order Group 1: famotidine (PEPCID) tablet 20 mg (CANCELED)Jump to med 20 mg, Oral, 2 TIMES DAILY, First dose on 03/31/15 at 2145, Until Discontinued, If unable to take PO, may give IV, Routine Or famotidine (PEPCID) injection 20 mg (CANCELED) 20 mg, Intravenous, 2 TIMES DAILY, First dose on 03/31/15 at 2145, Until Discontinued, Routine Group 2: oxyCODONE (ROXICODONE) immediate release tablet 5 mgJump to med 5 mg, Oral, EVERY 3 HOURS PRN, Starting on Wed04/05/15 at 0802, Until 04/06/15 at 2022, Pain, mild pain (1-3), May give additional 5 mg in 30 minutes once if pain not relieved., Routine Or oxyCODONE (ROXICODONE) immediate release tablet 10 mg (CANCELED)Jump to med 10 mg, Oral, EVERY 3 HOURS PRN, Starting on 04/05/15 at 0802, Until 04/06/15 at 2022, Pain, moderate pain (4-6), May give additional 5 mg in 30 minutes once if pain not relieved., Routine Or oxyCODONE (ROXICODONE) immediate release tablet 15 mg (CANCELED)Jump to med 15 mg, Oral, EVERY 3 HOURS PRN, Starting on 04/05/15 at 0802, Until 04/06/15 at 2022, Pain, severe pain or opiate tolerant patient (7-10), Do not start patient with 15 mg dose. Do not give 15 mg if patient is opiate niave., Routine documented in this encounter Care Teams Asset Availability Leader Relationship Specialty Start Date End Date Amauri Chapa MD [address] [place] [address] [place] [address] PCP - General 04/22/10 11/11/15 documented as of this encounter
--- OUTSIDE RECORDS SUMMARY | 2024-02-23 16:44 | XMS_ITS | Encounter Summary ---
Author Organization [facility] [place] [address] Care Team Providers Care Flue Tile Press Operator Name Role Phone Amauri Chapa MD Primary Care Provider Encounter Details Date Type Department Care Team (Latest Contact Info) Description 03/31/2015 12:15 AM EDT - 03/31/2015 6:18 PM EST Hospital Encounter Radiology Library at [facility] [place] [id number] Discharge Disposition: Home Social History Tobacco Use Types Packs/Day Years Used Date Smoking Tobacco: Never Assessed Sex and Gender Information Value Date Recorded [...] 325 mg by mouth 2 times daily. oxyCODONE (ROXICODONE) 5 mg Tablet Take 1 tablet by mouth every 3 hours as needed for Pain (mild pain (1-3)). 30 tablet 0 04/06/2015 04/06/2015 lamoTRIgine (LAMICTAL) 25 mg Tablet Take 1-2 tablets by mouth 2 times daily. For first 2 weeks take 25mg (1 tablet) twice daily. Week 3 take 2 pills (50mg) in the morning and 1 pill (25mg) at night. Week 4 take 50mg (2 pills) daily. 60 tablet 3 04/06/2015 04/06/2015 lamoTRIgine (LAMICTAL) 25 mg Tablet Take 1-2 [...] Procedure Name Priority Date/Time Associated Diagnosis Comments FILM LIBRARY STORAGE ONLY CT ABDOMEN AND PELVIS STAT 03/31/2015 12:15 AM EDT Pain documented in this encounter Results * Film Library- Storage Only CT Abdomen & Pelvis (03/31/2015 12:15 AM EDT) Narrative User, Generic Transmittal - 03/31/2015 4:47 PM EST See PACS for result report. Dr Kelley [facility] FILM LIBRARY ORD ERABLES documented in this encounter Visit Diagnoses Not on filedocumented in this encounter Care Teams Flue Tile Press Operator Relationship Specialty Start Date End Date Amauri Chapa MD [address] [place] [address] [place] [id number] PCP - General 04/22/10 11/11/15 documented as of this encounter
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
--- OUTSIDE RECORDS SUMMARY | 2024-02-23 16:44 | XMS_ITS | Encounter Summary ---
Author Organization [facility]ly [facility] [place] [address] Care Team Providers Care Power Line Installer And Repairer Name Role Phone Amauri Chapa MD Primary Care Provider [phone] Encounter Details Date Type Department Care Team (Latest Contact Info) Description 03/31/2015 - 03/31/2015 12:14 AM EDT Hospital Encounter Radiology Library at [facility] [place] [id number] Discharge Disposition: Home Social History Tobacco Use [...] Diagnosis Comments FILM LIBRARY STORAGE ONLY CT HEAD AND SPINE STAT 03/31/2015 12:00 AM EDT Pain documented in this encounter Results * Film Library- Storage Only CT Head And Spine (03/31/2015 12:00 AM EDT) Narrative User, Generic Transmittal - 03/31/2015 4:45 PM EST See PACS for result report. Dr Kelley [facility] FILM LIBRARY ORD ERABLES documented in this encounter Visit Diagnoses Not on filedocumented in this encounter Care Teams Power Line Installer And Repairer Relationship Specialty Start Date End Date Amauri Chapa MD [address] [place] [address] [place] [address] PCP - General 04/22/10 11/11/15 documented as of this encounter
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
--- OUTSIDE RECORDS SUMMARY | 2024-02-23 16:44 | XMS_ITS | Encounter Summary ---
Author Organization [facility] Address [facility] [place] [address] Care Team Providers Care Knife Cutter Name Role Phone Amauri Chapa MD Primary Care Provider [phone] Reason for Visit * Auth/Cert Specialty Diagnoses / Procedures Referred By Karen t Referred To Contact Procedures None Referral ID Status Reason Start Date Expiration Date Visits Re quested Visits Authorized [id number] 1 1 Encounter Details Date Type Department Care Team (Latest Contact Info) Description 04/03/2015 - 04/03/2015 11:59 PM EST Hospital Encounter Radiology Library at [facility] [place] [address] Sid Oconnor MD [facility] [address] Discharge Disposition: Home Social History Tobacco Use [...] as of this encounter Plan of Treatment Pending Results Name Type Priority Associated Diagnoses Date /Time FILM LIBRARY-FLUORO OR [id number] ONL Imaging Routine 04/03/2015 5:4 2 PM EST documented as of this encounter Visit Diagnoses Not on filedocumented in this encounter Care Teams Knife Cutter Relationship Specialty Start Date End Date Amauri Chapa MD [address] [place] [address] [place] [address] PCP - General 04/22/10 11/11/15 documented as of this encounter
--- OUTSIDE RECORDS SUMMARY | 2024-02-23 16:44 | XMS_ITS | Encounter Summary ---
Author Organization [facility] [place] [address] Care Team Providers Care Piped Buttonhole Machine Operator Name Role Phone Amauri Chapa MD Primary Care Provider [phone] Encounter Details Date Type Department Care Team (Latest Contact Info) Description 03/31/2015 7:31 PM EST - 03/31/2015 11:59 PM EST Hospital Encounter Radiology Library at [facility] [place] [address] Sid Oconnor MD [facility] [place] [address] Discharge Disposition: Home Social History Tobacco Use [...] Procedure Name Priority Date/Time Associated Diagnosis Comments REQUEST FOR 2ND READ CT ABDOMEN AND PELVIS Routine 03/31/2015 7:33 PM EST documented in this encounter Results * Request For 2nd Read CT Abdomen [...] pelvis was performed March 31, 2015 at [facility] without intravenous administration of contrast. Oral [...] abdomen and pelvis was performed March at [facility] without intravenous administration of contrast.Oral contrast [...] L2 transverse processes. 5. Gastroesophageal reflux disease. Sid Oconnor MD IMG OUTSIDE INTERPR ETATION ORDERABLES documented in this encounter Visit Diagnoses Not on filedocumented in this encounter Care Teams Piped Buttonhole Machine Operator Relationship Specialty Start Date End Date Amauri Chapa MD [address] [place] [address] [place] [address] PCP - General 04/22/10 11/11/15 documented as of this encounter
--- OUTSIDE RECORDS SUMMARY | 2024-02-23 16:44 | XMS_ITS | Encounter Summary ---
Author Organization [facility] Address [facility] [place] [address] Care Team Providers Care Clutch Specialist Name Role Phone Amauri Chapa MD Primary Care Provider [phone] Reason for Visit * Auth/Cert Specialty Diagnoses / Procedures Referred By Contmichele t Referred To Contact Procedures None Referral ID Status Reason Start Date Expiration Date Visits Re quested Visits Authorized [id number] 1 1 Encounter Details Date Type Department Care Team (Latest Contact Info) Description 03/31/2015 7:27 PM EST - 03/31/2015 7:30 PM [facility] Hospital Encounter Radiology Library at [facility] [place] [address] Sid Oconnor MD [facility] [place] [address] Discharge Disposition: Home Social History Tobacco Use [...] Diagnosis Comments REQUEST FOR 2ND READ CT HEAD AND SPINE Routine 03/31/2015 7:29 PM EST documented in this encounter Results * Request For 2nd Read CT Head [...] injury to the head or cervical spine. Sid Oconnor MD IMG OUTSIDE INTERPR ETATION ORDERABLES documented in this encounter Visit Diagnoses Not on filedocumented in this encounter Care Teams Clutch Specialist Relationship Specialty Start Date End Date Amauri Chapa MD [address] [place] [address] [place] [address] PCP - General 04/22/10 11/11/15 documented as of this encounter
[2024-02-23 20:02] LABS: Iron 104 ug/dL (50-170); Total Iron Binding Capacity 357 ug/dL (250-450); Transferrin Sat 29 % (15-50)
[2024-02-23 20:26] LABS: ALT 20 U/L (14-59); AST 24 U/L (15-37); Albumin 4.2 g/dL (3.4-5.0); Alkaline Phosphatase 121 U/L (46-116); Anion Gap 7.3 mmol/L (3-11); BUN 16 mg/dL (7-18); Bilirubin, Total 0.29 mg/dL (0.2-1.0); CO2 27.7 mmol/L (21.0-32.0); CREATININE 0.9 mg/dL (0.55-1.02); Calculated LDL 100 mg/dL (<100); Chloride 106 mmol/L (98-107); Cholesterol 183 mg/dL (<200); Estimated GFR 78.86 (mL/min/1.73m2); Ferritin 31 ng/mL (8-252); Glucose 86 mg/dL (74-106); HDL Cholesterol 63 mg/dL (40-60); Potassium 3.4 mmol/L (3.5-5.1); Sodium 141 mmol/L (136-145); Total Protein 7.8 g/dL (6.4-8.2); Triglyceride 104 mg/dL (<150)
== END 2024-02-23 16:39 | disposition home or self-care (01) ==
LOC: NCHCN 16:38
PROVIDERS: PCP Internal Medicine; Visit Provider Internal Medicine
DX: K76.0 Fatty (change of) liver, not elsewhere classified
CPT/HCPCS: 80053; 80061; 82728; 83540; 83550; 84443

== ENCOUNTER 2025-03-26 11:17 | Outpatient (REF) | payer BC, SELFPAY ==
[2025-03-26 18:59] LABS: HCT 39.9 % (36.0-46.0); HGB 12.9 g/dL (11.2-15.7); MCH 31.9 pg (27.0-33.0); MCHC 32.3 % (32.0-36.0); MCV 99 fL (80-95); MPV 12.0 fL (8.0-11.0); Platelet Count 185 10^3/uL (130-400); RBC 4.05 10^6/uL (3.93-5.22); RDW 12.1 % (11.7-14.6); RDW-SD 43.8 fL; WBC 6.06 10^3/uL (4.4-10.8)
[2025-03-26 19:13] LABS: ALT 30 U/L (14-59); AST 19 U/L (15-37); Albumin 3.9 g/dL (3.4-5.0); Alkaline Phosphatase 105 U/L (46-116); Anion Gap 6.8 mmol/L (3-11); BUN 13 mg/dL (7-18); Bilirubin, Total 0.2 mg/dL (0.2-1.0); CO2 27.2 mmol/L (21.0-32.0); Calcium 8.3 mg/dL (8.5-10.1); Calculated LDL 78 mg/dL (<100); Chloride 104 mmol/L (98-107); Cholesterol 149 mg/dL (<200); Estimated GFR 90.27 (mL/min/1.73m2); Ferritin 54 ng/mL (8-252); Glucose 111 mg/dL (74-106); HDL Cholesterol 47 mg/dL (>or=50); Potassium 3.6 mmol/L (3.5-5.1); Sodium 138 mmol/L (136-145); TSH (W/Ref FT4) 1.49 uIU/mL (0.36-3.74); Total Protein 7.1 g/dL (6.4-8.2); Triglyceride 121 mg/dL (<150)
== END 2025-03-26 11:18 | disposition home or self-care (01) ==
LOC: NCHCN 11:17
PROVIDERS: PCP Internal Medicine; Visit Provider Nurse Practitioner Family
DX: D50.8 Other iron deficiency anemias (principal); E66.9 Obesity, unspecified; K76.0 Fatty (change of) liver, not elsewhere classified
CPT/HCPCS: 80053; 80061; 85027; 82728; 84443